=== PATIENT | male | born 1945 | race Caucasian/White ===

== ENCOUNTER 2022-04-22 16:00 | Inpatient (IN) | payer MEDICARE, BC ==
[~2022-04-22] VITALS: Ht 180.3 cm; Wt 92.5 kg
[~2022-04-22 16:00] MED LIST: LISI10TA29 PO
[2022-04-22] MEDS ORDERED: methylPREDNISolone SOD SUCC 125 MG/2 ML VIAL IV ONE (16:15)
[2022-04-22] MEDS ORDERED: ALBUTEROL SULFATE 2.5 MG/3 ML NEBU NEB ONE (16:15)
[2022-04-22] MEDS ORDERED: IPRATROPIUM BROMIDE 0.5 MG/2.5 ML NEBU NEB ONE (16:15)
[2022-04-22 16:24] LABS: HEMATOCRIT 25.8 % (36.7-47.1); MEAN CORPUSCULAR HEMOGLOBIN 32.5 uug (23.8-33.4); MEAN CORPUSCULAR VOLUME 92.2 fL (73.0-96.2); PLATELET COUNT (AUTO) 308 K/uL (152-348)
[2022-04-22 16:35] LABS: CARBON DIOXIDE 26 mmol/L (21-32); CHLORIDE 85 mmol/L (98-107); CREATININE 0.9 mg/dL (0.6-1.3); GLUCOSE 130 mg/dL (74-106); POTASSIUM 4.5 mmol/L (3.5-5.1); UREA NITROGEN, BLOOD 21 mg/dL (7-18)
[2022-04-22] MEDS ORDERED: FUROSEMIDE 40 MG/4 ML VIAL IV ONE (17:00)
[2022-04-22 17:03] LABS: *BILIRUBIN,URIN NEGATIVE (NEGATIVE); *CLARITY,URINE SLIGHTLY CLOUDY (CLEAR); *COLOR,URINE YELLOW (YELLOW); *KETONES,URINE NEGATIVE (NEGATIVE); LEUKOCYTE ESTERASE ,URINE NEGATIVE (NEGATIVE); NITRITE, URINE NEGATIVE (NEGATIVE); PH,URINE 5.5 (5.0-8.0); UGLUCOSE NEGATIVE (NEGATIVE)
[2022-04-22 17:06] LABS: *BLOOD, URINE TRACE (NEGATIVE)
--- NOTE | 2022-04-22 17:17 | NUR ---
Radiologic Technologist assumes care: nursing SBAR received from RN GEOFF Sanders, patient is AOx4, on BIPAP with parameters@15/5, rate=20/min, FiO2=40%, patientis tolerating the BIPAP well, CCU/ICU admission per Dr Modi, patient's [email or web address].
[2022-04-22 17:19] LABS: *CHLORIDE RNDM,URINE 12 mmol/L (100-250); *POTASSIUM RNDM,URINE 30 mmol/L (25-125)
[2022-04-22 17:24] LABS: ABG BASE EXCESS -2.6 mmol/L; ABG HCO3 21.7 mmol/L; ABG PCO2 35.3 mmHg (35.0-45.0); ABG PH 7.406 (7.350-7.450); ABG PO2 78.9 mmHg (75.0-100.0); ABG SITE LEFT BRACHIAL; ABG TOTAL HEMOGLOBIN 9.4 G/dL (13.5-18.0); COHb 0.3 % (0.5-1.5); MetHb 0.3 % (0.0-1.5); O2Hb 94.5 % (94.0-97.0); VENT MODE BIPAP
--- NOTE | 2022-04-22 17:34 | NUR ---
Patient wants something for pain, MD notified, pending orders.
--- NOTE | 2022-04-22 17:42 | NUR ---
Nursing animal caretaker supervisor Narcisa, ER registration staff Kassandra and CCU nurse Alanis were notified re: plan to admit to CCU/ICU".
[2022-04-22] MEDS ORDERED: MORPHINE SULFATE 10 MG/1 ML DISP.SYRIN IV ONE (18:30)
[2022-04-22] MEDS ORDERED: MORPHINE SULFATE 4 MG/1 ML DISP.SYRIN ONE (18:38)
--- NOTE | 2022-04-22 19:05 | NUR ---
Patient is resting comfortably on gurney with eyes closed, BIPAP on, pending bread dumper's callback, Nursing SBAR given to FATEMEH Amado.
--- NOTE | 2022-04-22 19:34 | NUR ---
Patient will be admited to CCU under Dr Alli Terrazas
[2022-04-22 20:22] LABS: BACTERIA,URINE NONE SEEN /HPF (NONE SEEN); SQUAMOUS EPITHELIAL CELL,UR FEW /HPF (NONE SEEN); WBC,URINE 0-3 /HPF (0-3)
[2022-04-22 20:23] LABS: URINE AMORPHOUS URATE MODERATE /HPF
[2022-04-22 22:00] VITALS: BP 165/77
[2022-04-22] MEDS ORDERED: REMEDY ESSENTIAL ZINC PASTE 113 GM TP PRN (22:15)
[2022-04-22] MEDS ORDERED: BUMETANIDE INJ 4 MG in IV DEXTROSE 5% 24 ML IV ONE (22:15)
[2022-04-22] MEDS ORDERED: ONDANSETRON 4 MG/2 ML VIAL IV PRN (22:15)
[2022-04-22 22:33] LABS: CREATININE 1.2 mg/dL (0.6-1.3); POTASSIUM 4.5 mmol/L (3.5-5.1)
[2022-04-22] MEDS ORDERED: methylPREDNISolone SOD SUCC 40 MG/ML VIAL ONE (22:35)
[2022-04-22] MEDS ORDERED: BUMETANIDE 1 MG/4 ML VIAL ONE (22:35)
[2022-04-22 22:48] LABS: THYROID STIMULATING HORMONE 1.287 mIU/mL (0.358-3.740)
[2022-04-22] MEDS: methylPREDNISolone SOD SUCC 40 MG/ML VIAL IV SCH (22:55)
[2022-04-22] MEDS ORDERED: APIXABAN 5 MG TABLET ONE (22:59)
[2022-04-22 23:00] VITALS: BP 156/56
[2022-04-22] MEDS: APIXABAN 5 MG TABLET PO SCH (23:01)
[2022-04-22] MEDS ORDERED: IPRATROPIUM BROMIDE 0.5 MG/2.5 ML NEBU ONE (23:19)
[2022-04-22] MEDS ORDERED: ALBUTEROL SULFATE 2.5 MG/3 ML NEBU ONE (23:19)
[2022-04-22] MEDS: ALBUTEROL SULFATE 2.5 MG/3 ML NEBU NEB SCH (23:21)
[2022-04-22] MEDS: IPRATROPIUM BROMIDE 0.5 MG/2.5 ML NEBU NEB SCH (23:21)
[2022-04-23] VITALS: BP 156/65
--- NOTE | 2022-04-23 00:30 | NUR ---
patient has episodes of respiratory distress with repositioning.
[2022-04-23] MEDS ORDERED: HYDROCODONE/APAP 10-325 MG TABLET ONE (01:35)
[2022-04-23] MEDS ORDERED: HYDROCODONE/APAP 10-325 MG TABLET PO PRN (01:45)
[2022-04-23 01:52] LABS: CREATININE 1.1 mg/dL (0.6-1.3); POTASSIUM 4.3 mmol/L (3.5-5.1)
[2022-04-23] MEDS ORDERED: ALBUTEROL SULFATE 2.5 MG/3 ML NEBU ONE (03:01)
[2022-04-23] MEDS ORDERED: IPRATROPIUM BROMIDE 0.5 MG/2.5 ML NEBU ONE (03:02)
[2022-04-23] MEDS: IPRATROPIUM BROMIDE 0.5 MG/2.5 ML NEBU NEB SCH ×6 (03:03→23:34)
[2022-04-23] MEDS: ALBUTEROL SULFATE 2.5 MG/3 ML NEBU NEB SCH ×5 (03:03→20:49)
[2022-04-23 04:26] VITALS: BP 123/65
--- NOTE | 2022-04-23 04:41 | NUR ---
patient has SHAN[facility] bed available on 3rd floor room 318.
[2022-04-23] MEDS ORDERED: methylPREDNISolone SOD SUCC 40 MG/ML VIAL ONE (05:13)
[2022-04-23] MEDS: methylPREDNISolone SOD SUCC 40 MG/ML VIAL IV SCH ×3 (05:14→21:36)
[2022-04-23 05:53] LABS: CREATININE 1.1 mg/dL (0.6-1.3); MAGNESIUM 1.6 mg/dL (1.8-2.4); PHOSPHOROUS 4.1 mg/dL (2.5-4.9)
[2022-04-23 06:09] LABS: HEMATOCRIT 24.1 % (36.7-47.1); MEAN CORPUSCULAR HEMOGLOBIN 32.6 uug (23.8-33.4); MEAN CORPUSCULAR VOLUME 91.6 fL (73.0-96.2); PLATELET COUNT (AUTO) 275 K/uL (152-348)
--- NOTE | 2022-04-23 06:50 | NUR ---
report given to Carolyn WELDON.
--- NOTE | 2022-04-23 08:00 | NUR ---
AWAKE ALERT AND ORIENTED X3, RESTING WITH 3L O2 NC SATURATING 93%, DENIES CHEST PAIN BUT SLIGHT SOB ON EXERTION SR ON MONITOR
[2022-04-23] MEDS: FUROSEMIDE 40 MG/4 ML VIAL IV SCH ×2 (08:47→21:28)
[2022-04-23] MEDS: ASPIRIN EC 81 MG TABLET.DR PO SCH (08:47)
[2022-04-23] MEDS: PANTOPRAZOLE SODIUM 40 MG VIAL IV SCH (08:47)
[2022-04-23] MEDS: APIXABAN 5 MG TABLET PO SCH ×2 (08:48→21:32)
[2022-04-23 09:41] LABS: CREATININE 1.1 mg/dL (0.6-1.3); POTASSIUM 4.4 mmol/L (3.5-5.1)
[2022-04-23] MEDS: MAGNESIUM SULFATE/D5W 100 ML IV SCH ×2 (09:57→10:39)
[2022-04-23] MEDS: ACETAMINOPHEN 325 MG TABLET PO PRN ×2 (10:12→23:32)
--- NOTE | 2022-04-23 10:30 | NUR ---
PATIENT BECAME VERY SOB, ANXIOUS, WARM AND DRY SKIN. O2 AT 2L SATURATING 94% B-PAP OFFERED BY RT BUT REFUSED. ROUTINE BREATHING TX GIVEN AND OBSERVED
--- NOTE | 2022-04-23 11:30 | NUR ---
PATIENT CALMED DOWN RESTING COMFORTABLY SITTING AT THE SIDE OF THE BED
[2022-04-23 11:54] VITALS: BP 110/45
--- NOTE | 2022-04-23 12:52 | NUR ---
C/O LEFT LEG PAIN 6/10 NOT RELIEVED WITH TYLENOL. HOSPITALIST NOTIFIED AWAITING CALL BACK. AWAITING ULTRA SOUND RESULTS
--- NOTE | 2022-04-23 13:01 | NUR ---
DR DAVILA CALLED BACK WITH ORDER TO START ON NORCO
[2022-04-23] MEDS: HYDROCODONE/APAP 10-325 MG TABLET PO PRN ×2 (13:11→19:43)
[2022-04-23 13:39] LABS: CREATININE 1.2 mg/dL (0.6-1.3); POTASSIUM 4.1 mmol/L (3.5-5.1)
[2022-04-23] MEDS ORDERED: BUDE10.2 IH (15:18)
[2022-04-23] MEDS ORDERED: FURO20TA4 PO (15:18)
[2022-04-23] MEDS ORDERED: LOSA50TA39 PO (15:18)
[2022-04-23] MEDS ORDERED: METO-357 PO (15:18)
[2022-04-23] MEDS ORDERED: DIGO125T PO (15:18)
[2022-04-23] MEDS ORDERED: APIX5TAB PO (15:18)
[2022-04-23 16:15] VITALS: BP 154/56
[2022-04-23 18:08] LABS: CREATININE 1.1 mg/dL (0.6-1.3)
--- NOTE | 2022-04-23 18:57 | NUR ---
RESTING COMFORTABLY IN BED CLOSELY MONITORED FOR SOB. CONTINUE WITH O2 AT 3L NC, HHN BY RT ORDERED. SR ON MONITOR
[2022-04-23 19:54] VITALS: BP 162/55
[2022-04-23] MEDS: ATORVASTATIN 40 MG TABLET PO SCH (21:29)
[2022-04-23] MEDS ORDERED: TRAZ-257 PO (21:38)
[2022-04-23] MEDS: TRAZODONE 100 MG TABLET PO PRN (22:24)
[2022-04-24] MEDS: ALBUTEROL SULFATE 2.5 MG/3 ML NEBU NEB SCH ×6 (00:08→21:20)
[2022-04-24] MEDS: HYDROCODONE/APAP 10-325 MG TABLET PO PRN ×4 (00:55→18:49)
[2022-04-24 03:58] VITALS: BP 132/50
[2022-04-24] MEDS: IPRATROPIUM BROMIDE 0.5 MG/2.5 ML NEBU NEB SCH ×5 (04:15→21:19)
[2022-04-24] MEDS: methylPREDNISolone SOD SUCC 40 MG/ML VIAL IV SCH ×3 (05:38→21:06)
[2022-04-24 06:15] LABS: HEMATOCRIT 21.9 % (36.7-47.1); MEAN CORPUSCULAR HEMOGLOBIN 32.2 uug (23.8-33.4); MEAN CORPUSCULAR VOLUME 91.3 fL (73.0-96.2); PLATELET COUNT (AUTO) 318 K/uL (152-348)
[2022-04-24 06:23] LABS: MAGNESIUM 2.1 mg/dL (1.8-2.4); PHOSPHOROUS 3.1 mg/dL (2.5-4.9); POTASSIUM 3.8 mmol/L (3.5-5.1)
[2022-04-24 07:54] LABS: MAGNESIUM 1.9 mg/dL (1.8-2.4); PHOSPHOROUS 3.1 mg/dL (2.5-4.9)
--- NOTE | 2022-04-24 08:00 | NUR ---
RESTING COMFORTABLY IN BED WITH EYES CLOSED NO SS OF PAIN OR DISTRESS. ON 3L NC SATURATING 93%. SR ON MONITOR
[2022-04-24 08:16] LABS: THYROID STIMULATING HORMONE 0.868 mIU/mL (0.358-3.740)
[2022-04-24] MEDS: FUROSEMIDE 40 MG/4 ML VIAL IV SCH ×2 (08:52→20:58)
[2022-04-24] MEDS: PANTOPRAZOLE SODIUM 40 MG VIAL IV SCH (08:53)
[2022-04-24] MEDS: ASPIRIN EC 81 MG TABLET.DR PO SCH (08:53)
[2022-04-24] MEDS: APIXABAN 5 MG TABLET PO SCH ×2 (08:54→20:52)
--- NOTE | 2022-04-24 12:30 | NUR ---
AMBULATED BY THE HALLWAY WITH FWW PATIENT ABLE TO AMBULATE WELL WITH O2 AT 3L NC
--- NOTE | 2022-04-24 13:00 | NUR ---
ROUTINE BREATHING TX DONE FOR SOB WITH GOOD RELIEF AFTER
[2022-04-24] MEDS: LIDOCAINE 5% PATCH TD SCH (14:55)
[2022-04-24] MEDS: PREGABALIN 100 MG CAPSULE PO SCH (14:55)
--- NOTE | 2022-04-24 15:02 | NUR ---
SEEN BY DR DAVILA AND DR CLEMENTE SEE ORDERS AND NOTES
[2022-04-24 15:37] VITALS: BP 153/51
[2022-04-24 15:41] VITALS: BP 153/51
[2022-04-24] MEDS ORDERED: MORPHINE SULFATE 4 MG/1 ML DISP.SYRIN IV ONE (20:15)
[2022-04-24 20:34] VITALS: BP 134/47
[2022-04-24] MEDS: ATORVASTATIN 40 MG TABLET PO SCH (20:52)
[2022-04-25] VITALS (9 sets, daily range): BP systolic 117–160; BP diastolic 44–68
[2022-04-25] MEDS: IPRATROPIUM BROMIDE 0.5 MG/2.5 ML NEBU NEB SCH ×8 (00:30→23:57)
[2022-04-25] MEDS: ALBUTEROL SULFATE 2.5 MG/3 ML NEBU NEB SCH ×8 (00:31→23:57)
[2022-04-25] MEDS: TRAZODONE 100 MG TABLET PO PRN ×2 (00:35→20:49)
[2022-04-25] MEDS: HYDROCODONE/APAP 10-325 MG TABLET PO PRN ×3 (00:36→22:06)
[2022-04-25] MEDS ORDERED: QUETIAPINE FUMARATE 25 MG TABLET PO ONE (03:00)
[2022-04-25] MEDS: methylPREDNISolone SOD SUCC 40 MG/ML VIAL IV SCH ×3 (05:23→22:06)
[2022-04-25] MEDS: PANTOPRAZOLE SODIUM 40 MG TABLET.DR PO SCH (06:18)
[2022-04-25] MEDS: PREGABALIN 100 MG CAPSULE PO SCH (08:38)
[2022-04-25] MEDS: ASPIRIN EC 81 MG TABLET.DR PO SCH (08:39)
[2022-04-25] MEDS: FUROSEMIDE 40 MG/4 ML VIAL IV SCH ×2 (08:39→20:49)
[2022-04-25] MEDS: LIDOCAINE 5% PATCH TD SCH (08:39)
[2022-04-25] MEDS: APIXABAN 5 MG TABLET PO SCH ×2 (08:39→20:46)
[2022-04-25 11:14] LABS: MEAN CORPUSCULAR HEMOGLOBIN 31.9 uug (23.8-33.4); MEAN CORPUSCULAR VOLUME 92.5 fL (73.0-96.2); PLATELET COUNT (AUTO) 279 K/uL (152-348)
[2022-04-25 11:16] LABS: BILIRUBIN,TOTAL 0.4 mg/dL (0.2-1.0); CREATININE 1.3 mg/dL (0.6-1.3); PHOSPHOROUS 3.2 mg/dL (2.5-4.9); POTASSIUM 4.3 mmol/L (3.5-5.1); TOTAL PROTEIN, SERUM 5.8 g/dL (6.4-8.2)
[2022-04-25 11:18] LABS: HEMATOCRIT 19.9 % (36.7-47.1)
[2022-04-25] MEDS ORDERED: MAGNESIUM CITRATE 296 ML BOTTLE PO ONE (13:30)
[2022-04-25] MEDS ORDERED: BISACODYL 10 MG SUPP.RECT RC PRN (13:30)
[2022-04-25] MEDS: DOCUSATE SODIUM 100 MG CAPSULE PO SCH ×2 (13:44→20:46)
[2022-04-25] MEDS ORDERED: DEXTROSE 50% 50 ML DISP.SYRIN IV PRN (13:45)
[2022-04-25] MEDS: BLOOD SUGAR DIAGNOSTIC 1 EACH STRIP VI SCH ×3 (13:45→20:51)
[2022-04-25 14:10] LABS: LYMPHOCYTES % (MANUAL) 4 % (20-40); MONOCYTES % (MANUAL) 3 % (2-10); NEUTROPHILS % (MANUAL) 93 % (42-75)
--- NOTE | 2022-04-25 15:26 | NUR ---
BLOOD TRANSFUSION STARTED AT BEDSIDE. CLOSELY MONITORED
--- NOTE | 2022-04-25 16:09 | NUR ---
NO REACTION FROM BLOOD TRANSFUSION NOTED. CONTINUE WITH TX
[2022-04-25] MEDS: INSULIN REGULAR, HUMAN 300 UNIT/3 ML VIAL SQ PRN (16:27)
--- NOTE | 2022-04-25 16:55 | NUR ---
BS BY FINGER STICK 405. DR EAGLE DAVILA NOTIFIED PER PROTOCOL WITH ORDER TO GIVE ADDITIONAL 16 UNITS
[2022-04-25] MEDS ORDERED: INSULIN REGULAR, HUMAN 300 UNIT/3 ML VIAL SQ ONE (17:00)
--- NOTE | 2022-04-25 18:37 | NUR ---
BLOOD TRANSFUSION COMPLETED WITHOUT ANY REACTION.
--- NOTE | 2022-04-25 19:30 | NUR ---
Received patient sitting at the side of the bed. at bedside. AAOx4. In no apparent distress. Denies any pain or SOB at this time. NSR on tele with HR of 91/min. IV site on right hand intact and patent. O2 at 3LPM via NC in place. O2 sat at 97%. Needs assessed and attended to. Safety measure initiated and call light within reached.
[2022-04-25] MEDS: ATORVASTATIN 40 MG TABLET PO SCH (20:46)
[2022-04-25] MEDS: INSULIN REGULAR, HUMAN 300 UNITS/3 ML VIAL SQ PRN (20:52)
[2022-04-26 00:31] VITALS: BP 151/57
--- NOTE | 2022-04-26 02:21 | NUR ---
Patent complaining of insomnia at this time, although he was given Trazodone 10mg at 2200. Informed FRAME HAND Mame and ordered Seroquel 25mg PO x1 dose. Order noted and will carry out.
[2022-04-26] MEDS ORDERED: QUETIAPINE FUMARATE 25 MG TABLET PO ONE (02:30)
[2022-04-26] MEDS: IPRATROPIUM BROMIDE 0.5 MG/2.5 ML NEBU NEB SCH ×6 (03:30→23:06)
[2022-04-26] MEDS: ALBUTEROL SULFATE 2.5 MG/3 ML NEBU NEB SCH ×6 (03:30→23:06)
[2022-04-26 04:51] VITALS: BP 144/68
--- NOTE | 2022-04-26 05:49 | NUR ---
NSR on tele with BBB, HR of 67/min. Remains on O2 at 3LPM via NC. Denies any SOB. Needs attended to and met. Safety measure maintained and call light within reached.
[2022-04-26] MEDS: methylPREDNISolone SOD SUCC 40 MG/ML VIAL IV SCH (06:00)
--- NOTE | 2022-04-26 06:00 | NUR ---
Patient refused blood draw per asset protection manager.
[2022-04-26] MEDS: PANTOPRAZOLE SODIUM 40 MG TABLET.DR PO SCH (06:09)
--- NOTE | 2022-04-26 06:36 | NUR ---
Patient refused due meds in AM as well as blood sugar testing. Will inform day shift RN to try to check FSBS before breakfast.
[2022-04-26] MEDS: BLOOD SUGAR DIAGNOSTIC 1 EACH STRIP VI SCH ×4 (07:30→20:24)
--- NOTE | 2022-04-26 08:24 | NUR ---
patient refused the blood sugar check and his breathing tx, risks and benefits explained, patient verbalized understanding of it, patient stated "he does not want anything to be done? patient right to refused respected, however will offer again at different time or when family is available.
[2022-04-26] MEDS: INSULIN REGULAR, HUMAN 300 UNIT/3 ML VIAL SQ PRN ×3 (08:50→16:29)
[2022-04-26] MEDS: PREGABALIN 100 MG CAPSULE PO SCH (09:28)
[2022-04-26] MEDS: ASPIRIN EC 81 MG TABLET.DR PO SCH (09:28)
[2022-04-26] MEDS: DOCUSATE SODIUM 100 MG CAPSULE PO SCH ×2 (09:29→21:22)
[2022-04-26] MEDS: FUROSEMIDE 40 MG/4 ML VIAL IV SCH (09:29)
[2022-04-26] MEDS: APIXABAN 5 MG TABLET PO SCH ×2 (09:29→21:23)
[2022-04-26] MEDS: LIDOCAINE 5% PATCH TD SCH (09:30)
[2022-04-26 09:51] LABS: HEMATOCRIT 23.5 % (36.7-47.1); MEAN CORPUSCULAR HEMOGLOBIN 30.7 uug (23.8-33.4); MEAN CORPUSCULAR VOLUME 89.7 fL (73.0-96.2); PLATELET COUNT (AUTO) 325 K/uL (152-348)
[2022-04-26 10:08] LABS: CREATININE 1.2 mg/dL (0.6-1.3); MAGNESIUM 2.9 mg/dL (1.8-2.4); PHOSPHOROUS 2.7 mg/dL (2.5-4.9); POTASSIUM 4.6 mmol/L (3.5-5.1)
[2022-04-26 10:09] LABS: IRON, SERUM 54 ug/dL (50-175)
[2022-04-26 10:35] LABS: FERRITIN 187 ng/mL (26-388)
[2022-04-26 12:29] VITALS: BP 111/40
[2022-04-26] MEDS: HYDROCODONE/APAP 10-325 MG TABLET PO PRN (14:28)
[2022-04-26] MEDS ORDERED: MORPHINE SULFATE 2 MG/1 ML DISP.SYRIN IV ONE (16:15)
[2022-04-26 16:32] VITALS: BP 131/41
--- NOTE | 2022-04-26 17:17 | NUR ---
report given to Angelica bullard Addendum: 04/26/22 at 1901 by LOTTIE BALL RN, RN disregard above documentatio, wrong charting
--- NOTE | 2022-04-26 19:01 | NUR ---
patient was compliant with meds and care. alert, oriented x4, managing CHF, on diuretics and lasix as ordered.
--- NOTE | 2022-04-26 19:11 | NUR ---
no acute distress noted during day, patient fairly tolerated daily acitivities, get sob upon exertion, teaching provided to eat his meals or other activities slowly. patient verbalized understanding of it, noted with pitting edema to both lower extremities.
[2022-04-26 20:15] VITALS: BP 155/50
[2022-04-26] MEDS: INSULIN REGULAR, HUMAN 300 UNITS/3 ML VIAL SQ PRN (20:23)
[2022-04-26] MEDS: ATORVASTATIN 40 MG TABLET PO SCH (20:24)
[2022-04-26] MEDS: TRAZODONE 100 MG TABLET PO PRN (22:20)
[2022-04-27] MEDS ORDERED: QUETIAPINE FUMARATE 25 MG TABLET PO ONE (02:30)
[2022-04-27] MEDS: IPRATROPIUM BROMIDE 0.5 MG/2.5 ML NEBU NEB SCH ×7 (02:31→23:18)
[2022-04-27] MEDS: ALBUTEROL SULFATE 2.5 MG/3 ML NEBU NEB SCH ×7 (02:31→23:18)
[2022-04-27] MEDS: HYDROCODONE/APAP 10-325 MG TABLET PO PRN ×2 (02:42→16:18)
[2022-04-27 04:18] VITALS: BP 145/50
[2022-04-27] MEDS: PANTOPRAZOLE SODIUM 40 MG TABLET.DR PO SCH (06:24)
[2022-04-27] MEDS: BLOOD SUGAR DIAGNOSTIC 1 EACH STRIP VI SCH ×4 (06:47→21:17)
[2022-04-27] MEDS: predniSONE 20 MG TABLET PO SCH (09:14)
[2022-04-27] MEDS: ASPIRIN EC 81 MG TABLET.DR PO SCH (09:14)
[2022-04-27] MEDS: FUROSEMIDE 40 MG TABLET PO SCH (09:14)
[2022-04-27] MEDS: PREGABALIN 100 MG CAPSULE PO SCH (09:14)
[2022-04-27] MEDS: DOCUSATE SODIUM 100 MG CAPSULE PO SCH ×2 (09:14→21:17)
[2022-04-27] MEDS: LIDOCAINE 5% PATCH TD SCH ×2 (09:16→16:18)
[2022-04-27] MEDS: APIXABAN 5 MG TABLET PO SCH (09:18)
[2022-04-27] MEDS ORDERED: BISACODYL 10 MG SUPP.RECT RC ONE (10:15)
[2022-04-27] MEDS ORDERED: CLOPIDOGREL 75 MG TABLET PO SCH (11:00)
[2022-04-27 11:34] VITALS: BP 127/52
[2022-04-27] MEDS: INSULIN REGULAR, HUMAN 300 UNIT/3 ML VIAL SQ PRN ×2 (11:59→17:35)
[2022-04-27 16:00] VITALS: BP 127/69
[2022-04-27] MEDS ORDERED: FENTANYL CITRATE 100 MCG/2 ML AMPUL ONE (19:29)
--- NOTE | 2022-04-27 19:30 | NUR ---
RECEIVED REPORT FROM RN. PATIENT IS DOWN IN SURGERY FOR EGD PROCEDURE.
[2022-04-27 19:54] VITALS: BP 149/57
[2022-04-27 20:00] LABS: *OCCULT BLOOD STOOL POSITIVE (NEGATIVE)
--- NOTE | 2022-04-27 20:30 | NUR ---
HOLD PLAVIX PER DR. PRIETO. PATIENT IS TO HAVE CLEAR LIQUIDS TONIGHT ONLY. ALL NEEDS ATTENDED.
[2022-04-27] MEDS: PANTOPRAZOLE SODIUM 40 MG VIAL IV SCH (21:13)
[2022-04-27] MEDS: ATORVASTATIN 40 MG TABLET PO SCH (21:15)
[2022-04-27] MEDS: TRAZODONE 100 MG TABLET PO PRN (23:26)
[2022-04-28] MEDS: IPRATROPIUM BROMIDE 0.5 MG/2.5 ML NEBU NEB SCH ×7 (03:17→19:16)
[2022-04-28] MEDS: ALBUTEROL SULFATE 2.5 MG/3 ML NEBU NEB SCH ×7 (03:17→19:16)
[2022-04-28] MEDS: HYDROCODONE/APAP 10-325 MG TABLET PO PRN ×3 (04:03→20:19)
[2022-04-28 04:58] VITALS: BP 146/50
--- NOTE | 2022-04-28 06:25 | NUR ---
PATIENT AWAKE IN BED. DENIES PAIN. SLEPT AT INTERVALS. VS WNL. CALL LIGHT IN REACH. ALL NEEDS ATTENDED.
[2022-04-28] MEDS: BLOOD SUGAR DIAGNOSTIC 1 EACH STRIP VI SCH ×4 (06:35→20:20)
[2022-04-28 06:53] LABS: HEMATOCRIT 22.9 % (36.7-47.1); MEAN CORPUSCULAR VOLUME 90.9 fL (73.0-96.2); PLATELET COUNT (AUTO) 301 K/uL (152-348)
[2022-04-28 07:26] LABS: CARBON DIOXIDE 36 mmol/L (21-32); CHLORIDE 96 mmol/L (98-107); GLUCOSE 106 mg/dL (74-106); POTASSIUM 4.8 mmol/L (3.5-5.1); UREA NITROGEN, BLOOD 24 mg/dL (7-18)
[2022-04-28 07:43] LABS: ABG BASE EXCESS 10.3 mmol/L; ABG HCO3 35.8 mmol/L; ABG PCO2 54.6 mmHg (35.0-45.0); ABG PH 7.435 (7.350-7.450); ABG PO2 94.3 mmHg (75.0-100.0); ABG SITE RIGHT RADIAL; ABG TOTAL HEMOGLOBIN 8.7 G/dL (13.5-18.0); COHb 0.4 % (0.5-1.5); MetHb 0.4 % (0.0-1.5); O2Hb 96.1 % (94.0-97.0); VENT MODE Nasal Cannula
[2022-04-28] MEDS: SUCRALFATE 1 G TABLET PO SCH ×4 (08:52→20:19)
[2022-04-28] MEDS: PREGABALIN 100 MG CAPSULE PO SCH (08:52)
[2022-04-28] MEDS: FUROSEMIDE 40 MG TABLET PO SCH (08:53)
[2022-04-28] MEDS: predniSONE 20 MG TABLET PO SCH (08:53)
[2022-04-28] MEDS: ASPIRIN EC 81 MG TABLET.DR PO SCH (08:53)
[2022-04-28] MEDS: GLUCERNA SHAKE 237 ML CAN PO SCH (08:53)
[2022-04-28] MEDS: DOCUSATE SODIUM 100 MG CAPSULE PO SCH ×2 (08:53→20:19)
[2022-04-28] MEDS: PANTOPRAZOLE SODIUM 40 MG VIAL IV SCH ×2 (08:53→20:19)
--- NOTE | 2022-04-28 11:00 | NUR ---
Confirmed with Dr. Rider if patient should be on Plavix PO since magazine writer, Vish Hoff ordered to hold plavix. Per Dr. Rider, patient needs to to be on Plavix due to recent stent placement. Patient aware.
[2022-04-28 11:50] VITALS: BP 147/56
[2022-04-28] MEDS: CLOPIDOGREL 75 MG TABLET PO SCH (12:28)
[2022-04-28] MEDS: INSULIN REGULAR, HUMAN 300 UNIT/3 ML VIAL SQ PRN (12:32)
--- NOTE | 2022-04-28 15:59 | NUR ---
Patient noted with one episode of SOB and anxiousness. [place] provided and effective. Seen by Dr. Delgadillo, no new orders, patient bale to tolerate 3L/min via NC at this time with 02 sats at 94%. Denies any chest pain. Able to ambulate to to bathroom with SBA, safety precautions continued. All needs attended, call light within reach.
[2022-04-28] MEDS: LIDOCAINE 5% PATCH TD SCH (18:26)
[2022-04-28 20:08] VITALS: BP 166/56
[2022-04-28] MEDS: ATORVASTATIN 40 MG TABLET PO SCH (20:20)
[2022-04-28] MEDS: INSULIN REGULAR, HUMAN 300 UNITS/3 ML VIAL SQ PRN (20:24)
--- NOTE | 2022-04-28 20:30 | NUR ---
RECEIVED PATIENT IN HIS ROOM SITING IN HIS BED. HE IS NOTED A/O X 3 HIS IS AT HIS BED SIDE. PATIENT IS IN NO DISTRESS. HIS V/S ARE STABLE. IV LOCKED IN RIGHT HAND PATENT AND INTACT. HE CONTINUE ON O2 THERAPY AT 3L VIA NC. O2SAT IS 99%. HE DENIED PAIN AT THIS TIME. WILL CONTINUE TO MONITOR.
--- NOTE | 2022-04-28 21:00 | NUR ---
meds given; hands off report given to FATEMEH Harris;
[2022-04-29] MEDS: ALBUTEROL SULFATE 2.5 MG/3 ML NEBU NEB SCH ×4 (00:30→11:30)
[2022-04-29] MEDS: IPRATROPIUM BROMIDE 0.5 MG/2.5 ML NEBU NEB SCH ×4 (00:30→11:30)
[2022-04-29 04:11] VITALS: BP 158/55
[2022-04-29] MEDS: SUCRALFATE 1 G TABLET PO SCH ×2 (06:35→11:38)
[2022-04-29] MEDS: BLOOD SUGAR DIAGNOSTIC 1 EACH STRIP VI SCH ×2 (06:38→12:23)
[2022-04-29] MEDS: HYDROCODONE/APAP 10-325 MG TABLET PO PRN (06:55)
[2022-04-29 07:08] LABS: HEMATOCRIT 21.5 % (36.7-47.1); MEAN CORPUSCULAR HEMOGLOBIN 31.6 uug (23.8-33.4); MEAN CORPUSCULAR VOLUME 90.1 fL (73.0-96.2); PLATELET COUNT (AUTO) 261 K/uL (152-348)
[2022-04-29 07:29] LABS: CREATININE 0.8 mg/dL (0.6-1.3); POTASSIUM 4.2 mmol/L (3.5-5.1)
[2022-04-29 08:03] LABS: LYMPHOCYTES % (MANUAL) 17 % (20-40); MONOCYTES % (MANUAL) 7 % (2-10); MYELOCYTES % 1 % (0-0); NEUTROPHILS % (MANUAL) 75 % (42-75)
[2022-04-29] MEDS: PREGABALIN 100 MG CAPSULE PO SCH (08:45)
[2022-04-29] MEDS: FUROSEMIDE 40 MG TABLET PO SCH (08:45)
[2022-04-29] MEDS: CLOPIDOGREL 75 MG TABLET PO SCH (08:45)
[2022-04-29] MEDS: predniSONE 20 MG TABLET PO SCH (08:46)
[2022-04-29] MEDS: ASPIRIN EC 81 MG TABLET.DR PO SCH (08:46)
[2022-04-29] MEDS: DOCUSATE SODIUM 100 MG CAPSULE PO SCH (08:46)
[2022-04-29] MEDS: PANTOPRAZOLE SODIUM 40 MG VIAL IV SCH (08:46)
[2022-04-29] MEDS: GLUCERNA SHAKE 237 ML CAN PO SCH (08:47)
[2022-04-29] MEDS: LIDOCAINE 5% PATCH TD SCH (08:47)
[2022-04-29] MEDS ORDERED: PANT40TA2 PO (10:15)
[2022-04-29] MEDS ORDERED: METH4TAB3 PO (10:15)
[2022-04-29] MEDS ORDERED: PREG100C GT (10:15)
[2022-04-29] MEDS ORDERED: ASPI81TA31 PO (10:15)
[2022-04-29] MEDS ORDERED: SUCR1TAB PO (10:15)
[2022-04-29] MEDS ORDERED: CLOP75TA15 PO (10:15)
[2022-04-29] MEDS ORDERED: TRAZ-257 PO (10:15)
[2022-04-29] MEDS ORDERED: FURO-151 PO (10:15)
[2022-04-29 11:54] VITALS: BP 129/98
[2022-04-29] MEDS: INSULIN REGULAR, HUMAN 300 UNIT/3 ML VIAL SQ PRN (12:27)
--- NOTE | 2022-04-29 13:20 | NUR ---
Pt has been discharged home. Pt at bedside, gave discharge education and materials to both pt and . Medications sent electronically to preferred pharmacy, explained directions and use. All personal belongings at hand. Checked pt's SpO2 on room air per MD order, saturation was as low as 86% on room air. Pt qualifies for home oxygen. Placed pt back on 3L NC. Oxygen set up to have at home per case management specialist. No signs of acute distress noted or reported. IV and ID bands removed. Pt wheeled down to wifes car at entrance.
== END 2022-04-29 13:20 | disposition home or self-care (01) | DRG 280 ==
LOC: ER 16:00 → TRANSITION 21:42 → TELE-TD3 04-23 06:46 → TELE3 04-24 14:46 → MEDSURG3 04-26 10:40
PROVIDERS: ADMIT Nurse Practitioner Acute Care; ATTEND Nurse Practitioner Acute Care
PROC: 5A09357 Assistance with Respiratory Ventilation, Less than 24 Consecutive Hours, Continuous Positive Airway Pressure (ICD-10-PCS; principal; 2022-04-22)
PROC: 30233N1 Transfusion of Nonautologous Red Blood Cells into Peripheral Vein, Percutaneous Approach (ICD-10-PCS; 2022-04-25)
PROC: 0W3P8ZZ Control Bleeding in Gastrointestinal Tract, Via Natural or Artificial Opening Endoscopic (ICD-10-PCS; 2022-04-27)
DX: I13.0 Hypertensive heart and chronic kidney disease with heart failure and stage 1 through stage 4 chronic kidney disease, or unspecified chronic kidney disease (principal); I21.A1 Myocardial infarction type 2; I50.33 Acute on chronic diastolic (congestive) heart failure; J96.21 Acute and chronic respiratory failure with hypoxia; J96.22 Acute and chronic respiratory failure with hypercapnia; N17.0 Acute kidney failure with tubular necrosis; K31.82 Dieulafoy lesion (hemorrhagic) of stomach and duodenum; E87.1 Hypo-osmolality and hyponatremia; D68.9 Coagulation defect, unspecified; D63.8 Anemia in other chronic diseases classified elsewhere; E78.5 Hyperlipidemia, unspecified; I25.10 Atherosclerotic heart disease of native coronary artery without angina pectoris; E11.22 Type 2 diabetes mellitus with diabetic chronic kidney disease; Z79.01 Long term (current) use of anticoagulants; N18.2 Chronic kidney disease, stage 2 (mild); Z95.5 Presence of coronary angioplasty implant and graft; Z99.81 Dependence on supplemental oxygen; E11.65 Type 2 diabetes mellitus with hyperglycemia; Z86.718 Personal history of other venous thrombosis and embolism; Z96.641 Presence of right artificial hip joint; I27.20 Pulmonary hypertension, unspecified; M54.32 Sciatica, left side; K29.70 Gastritis, unspecified, without bleeding; F17.210 Nicotine dependence, cigarettes, uncomplicated; J44.9 Chronic obstructive pulmonary disease, unspecified
CPT/HCPCS: 36415; 36600; 51702; 70030-TC; 71045; 73502; 82533; 83550; 83735; 83930; 83935; 84100; 84133; 84300; 84443; 84484; 84550; 85025; 86140; 86850; 86900; 86901; 86920; 93005; 93307; 94640; 94660; 97161; A4663; C1758; C9113; G0378; J1815; J1940; J2270; J2920; J2930; J3010; J3475; J3490; J3590; J7120; J7512; P9016

== ENCOUNTER 2022-06-25 17:30 | Inpatient (IN) | payer MEDICARE, BC ==
[~2022-06-25] VITALS: Ht 180.3 cm; Wt 84.8 kg
[~2022-06-25 17:30] MED LIST changes: +ASPI81TA31 PO; +BUDE10.2 IH; +CLOP75TA15 PO; +FURO-151 PO; +FURO20TA4 PO; -LISI10TA29 PO; +LOSA50TA39 PO; +METH4TAB3 PO; +METO-357 PO; +PANT40TA2 PO; +PREG100C GT; +SUCR1TAB PO; +TRAZ-257 PO
[2022-06-25] MEDS ORDERED: ALBUTEROL SULFATE 2.5 MG/ 0.5 ML NEBU ONE (17:40)
[2022-06-25] MEDS ORDERED: methylPREDNISolone SOD SUCC 125 MG/2 ML VIAL ONE (17:41)
[2022-06-25] MEDS ORDERED: IPRATROPIUM BROMIDE 0.5 MG/2.5 ML NEBU ONE (17:41)
--- NOTE | 2022-06-25 17:43 | NUR ---
Patient placed on BiPap with settings of 12/5, rate of 18, FiO2 100%
[2022-06-25] MEDS ORDERED: methylPREDNISolone SOD SUCC 125 MG/2 ML VIAL IV ONE (17:45)
[2022-06-25] MEDS ORDERED: IPRATROPIUM BROMIDE 0.5 MG/2.5 ML NEBU NEB ONE (17:45)
[2022-06-25] MEDS ORDERED: ALBUTEROL SULFATE 2.5 MG/3 ML NEBU NEB ONE (17:45)
[2022-06-25] MEDS ORDERED: NITROGLYCERIN 0.4 MG/TAB BOTTLE SL ONE ×2 (17:56→18:00)
[2022-06-25 18:01] LABS: CARBON DIOXIDE 29 mmol/L (21-32); CHLORIDE 88 mmol/L (98-107); CREATININE 0.7 mg/dL (0.6-1.3); GLUCOSE 150 mg/dL (74-106); UREA NITROGEN, BLOOD 7 mg/dL (7-18)
[2022-06-25] MEDS ORDERED: PANT40TA49 PO (18:07)
[2022-06-25] MEDS ORDERED: OXYC5TAB3 PO (18:07)
[2022-06-25] MEDS ORDERED: ISOS30TA86 PO (18:07)
[2022-06-25] MEDS ORDERED: AMLO10TA59 PO (18:07)
[2022-06-25] MEDS ORDERED: CLOP75TA33 PO (18:07)
[2022-06-25] MEDS ORDERED: PREG100C PO (18:07)
[2022-06-25 18:12] LABS: HEMATOCRIT 25.3 % (36.7-47.1); MEAN CORPUSCULAR HEMOGLOBIN 24.9 uug (23.8-33.4); MEAN CORPUSCULAR VOLUME 76.9 fL (73.0-96.2); PLATELET COUNT (AUTO) 262 K/uL (152-348)
[2022-06-25 18:13] LABS: ALANINE AMINOTRANSFERASE 48 U/L (16-63); ALKALINE PHOSPHATASE 108 U/L (50-136); ASPARTATE AMINOTRANSFERASE 21 U/L (15-37); BILIRUBIN,DIRECT 0.1 mg/dL (0.0-0.2); BILIRUBIN,TOTAL 0.4 mg/dL (0.2-1.0); TOTAL PROTEIN, SERUM 6.3 g/dL (6.4-8.2)
[2022-06-25] MEDS ORDERED: FUROSEMIDE 40 MG/4 ML VIAL IV ONE (18:15)
[2022-06-25] MEDS ORDERED: FUROSEMIDE 40 MG/4 ML VIAL ONE (18:15)
[2022-06-25 18:19] LABS: NEUTROPHILS % (MANUAL) 0 % (42-75)
--- NOTE | 2022-06-25 18:23 | NUR ---
Paged [facility] working second hand. Waiting for Dr Davidson to call back.
[2022-06-25] MEDS ORDERED: NITROGLYCERIN OINT 1 GM PACKET TP ONE ×2 (18:30→18:32)
[2022-06-25] MEDS ORDERED: ASPIRIN 81 MG TAB.CHEW PO ONE (18:30)
--- NOTE | 2022-06-25 18:30 | NUR ---
Dr Dominguez spoke to [facility] panel air conditioning coil assembler, Mame who aacept patient to ICU admission.
[2022-06-25] MEDS ORDERED: ASPIRIN 81 MG TAB.CHEW ONE (18:31)
--- NOTE | 2022-06-25 19:26 | NUR ---
CALLED [facility], [facility] WHO HAS NO ALS AVAILABLE TODAY.
--- NOTE | 2022-06-25 19:27 | NUR ---
CALLED [facility] WHO MIGHT HAVE ALS UNIT AVAILABLE AT 2130 TO 2200 TODAY. THEY WILL CALL BACK TO CONFIRM.
--- NOTE | 2022-06-25 19:38 | NUR ---
Called Dr. Hancock for cardiology consult.
--- NOTE | 2022-06-25 20:20 | NUR ---
Called [facility], spoke with Marline, faxed patient clinicals to
--- NOTE | 2022-06-25 20:23 | NUR ---
Called [facility], left message.
[2022-06-25] MEDS ORDERED: ENOXAPARIN SODIUM 100 MG/ML DISP.SYRIN SQ ONE ×2 (20:30→22:57)
--- NOTE | 2022-06-25 20:45 | NUR ---
called respiratory therapist patient dont want the bipap and gets resltess spoked sam respiratory therapist his coming to see patient dr: malaika at b/s examined patient from bipap placed patient on simple face mask @8 liters saturation 100% rr 24.
--- NOTE | 2022-06-25 20:48 | NUR ---
Dr. Turner speaking with Dr. Felipe of [facility].
--- NOTE | 2022-06-25 20:50 | NUR ---
pt refused BIPAP as placed pt on 8LPM simple mask. SpO2 98%. MD and RN aware. will cont to monitor pt.
--- NOTE | 2022-06-25 21:00 | NUR ---
ASHLEY SPOKED WITH PATIENT AND PATIENT AT B/S . DISCUSSED THE PLAN FOR TRANSFER TO [facility] HE GOT A ROOM 508 AND AN ADMITTING MD FREDA .NEED TO ARRANGE FOR AMBULANCE TRANSPORTATION .PATIENT ALSO REQUESTIN GOT FOR SOMETHING TO EAT SO THAT THE CAN BRING FOOD FROM HOME .
--- NOTE | 2022-06-25 22:15 | NUR ---
BROUGHT FOOD FROM HOME PATIENT ABLE TO FEED SELF PATIENT ATE .
--- NOTE | 2022-06-25 22:55 | NUR ---
Received call back from Dana Wells, General Dentist, [facility], Patient accepted by Dr. Felipe, going to [facility], Room 508, Number to report .
--- NOTE | 2022-06-25 23:12 | NUR ---
:MEG AT B/S DISCUSSED THE PLAN OF TREATMENT SPOKED ABOUT HEART ATTACK AND WATER IN THE LUNGS ETC. HE NEEDS A ACCESS CONTROL SPECIALIST TO SEE HIM .THATS WHY HIS MOVING TO [facility] TO SEE AN EXPERT .
[2022-06-25] MEDS ORDERED: TRAZODONE 100 MG TABLET ONE (23:48)
[2022-06-25] MEDS ORDERED: HYDROCODONE/APAP 10-325 MG TABLET ONE (23:49)
--- NOTE | 2022-06-25 23:55 | NUR ---
GIVEN TRAZADONE 200 MG PO TO HELP HIM SLEEP AND NORCO FOR [place] BACK PAIN 05/19.PATIENT TOOK MEDICATION WITH WATER.
[2022-06-26] MEDS ORDERED: HYDROCODONE/APAP 10-325 MG TABLET PO ONE
[2022-06-26] MEDS ORDERED: TRAZODONE 50 MG TABLET PO ONE
--- NOTE | 2022-06-26 01:45 | NUR ---
patient in bed on and off asleep easily arousable . prn uses the urinal to void .
--- NOTE | 2022-06-26 06:46 | NUR ---
Called [facility] . ETA 2-3pm.
[2022-06-26 07:12] LABS: ABG BASE EXCESS 1.8 mmol/L; ABG HCO3 27.9 mmol/L; ABG PCO2 51.5 mmHg (35.0-45.0); ABG PH 7.351 (7.350-7.450); ABG PO2 435.4 mmHg (75.0-100.0); ABG SITE RIGHT BRACHIAL; MetHb 0.6 % (0.0-1.5); O2Hb 99.2 % (94.0-97.0); VENT MODE BIPAP
--- NOTE | 2022-06-26 07:30 | NUR ---
Radiation Protection Engineer assumes care: Patient is AOx4, calm, denies chest pains, skin warm and dry,+nasal cannula@4liters per minute. Patient is for transfer to [facility] room 508, pending accepting [facility] ambulance to take this patient to [facility]. Sinus rhythm on monitor, no ectopy seen.
[2022-06-26 08:58] LABS: HEMATOCRIT 26.9 % (36.7-47.1); MEAN CORPUSCULAR VOLUME 77.3 fL (73.0-96.2); PLATELET COUNT (AUTO) 291 K/uL (152-348)
--- NOTE | 2022-06-26 09:47 | NUR ---
Patient's spouse [email or web address]. Patient is for transfer to [facility] room 508. ACLS ambulance [id number] per [facility] porter sample case Chuck. Patient and family are both aware.
--- NOTE | 2022-06-26 10:11 | NUR ---
Ui Developer Dr Davidson came and said that this patient is stable for admission in our hospital instead of transferring to another hospital. ER Doctor notified. EPIC hospitalist will be notified by the clamp truck driver himself.
[2022-06-26] MEDS ORDERED: PANTOPRAZOLE SODIUM 40 MG TABLET.DR PO SCH (10:15)
[2022-06-26] MEDS ORDERED: PREGABALIN 100 MG CAPSULE PO SCH ×2 (10:15→21:00)
[2022-06-26] MEDS ORDERED: ACETAMINOPHEN 325 MG TABLET PO PRN (10:15)
[2022-06-26] MEDS ORDERED: FLUTICASONE/VILANTEROL 1 EACH BLST.W.DEV INH SCH (10:15)
[2022-06-26] MEDS ORDERED: ONDANSETRON 4 MG/2 ML VIAL IV PRN (10:15)
[2022-06-26] MEDS: ISOSORBIDE MONONITRATE 30 MG TAB.SR.24H PO SCH (10:15)
[2022-06-26] MEDS: LOSARTAN POTASSIUM 50 MG TABLET PO SCH (10:15)
[2022-06-26] MEDS ORDERED: hydrALAZINE HCL 20 MG/1 ML VIAL IV PRN (10:15)
[2022-06-26] MEDS ORDERED: ALBUTEROL SULFATE 8 GM HFA.AER.AD IH PRN (10:15)
[2022-06-26] MEDS ORDERED: CLOPIDOGREL 75 MG TABLET ONE (10:19)
[2022-06-26] MEDS ORDERED: FUROSEMIDE 40 MG/4 ML VIAL ONE (10:20)
[2022-06-26] MEDS ORDERED: PANTOPRAZOLE SODIUM 40 MG TABLET.DR PO ONE (10:20)
[2022-06-26] MEDS ORDERED: METOPROLOL SUCCINATE XL 50 MG TAB.SR.24H PO ONE (10:20)
[2022-06-26] MEDS ORDERED: ENOXAPARIN SODIUM 100 MG/ML DISP.SYRIN SQ ONE (10:21)
[2022-06-26] MEDS: FUROSEMIDE 40 MG/4 ML VIAL IV SCH ×2 (10:26→20:21)
[2022-06-26] MEDS: CLOPIDOGREL 75 MG TABLET PO SCH (10:27)
[2022-06-26] MEDS: METOPROLOL SUCCINATE XL 50 MG TAB.SR.24H PO SCH (10:29)
[2022-06-26] MEDS: ENOXAPARIN SODIUM 100 MG/ML DISP.SYRIN SQ SCH ×2 (10:30→20:22)
--- NOTE | 2022-06-26 11:45 | NUR ---
Patient is resting comfortably in bed with eyes closed, his respiration is easy and nonlabored. PATIENT IS PAIN FREE AT THIS TIME.
[2022-06-26 12:08] LABS: ABG BASE EXCESS 3.2 mmol/L; ABG PCO2 50.9 mmHg (35.0-45.0); ABG PH 7.374 (7.350-7.450); ABG PO2 60.9 mmHg (75.0-100.0); ABG SITE RIGHT RADIAL; ABG TOTAL HEMOGLOBIN 9.4 G/dL (13.5-18.0); COHb 0.5 % (0.5-1.5); MetHb 0.1 % (0.0-1.5); O2Hb 90.1 % (94.0-97.0); VENT MODE Nasal Cannula
[2022-06-26] MEDS ORDERED: ALBUTEROL SULFATE 2.5 MG/3 ML NEBU NEB PRN (12:30)
--- NOTE | 2022-06-26 13:00 | NUR ---
ADMITTED FROM HOME VIA ER A 77 YO MALE C//O SOB, DX NON-STEMI AWAKE ALERT AND ORIENTED X3 ABLE TO PARTICIPATE WITH ADMISSION ASSESSMENT. SHIFT SOB ON EXERTION, PLACE ON 3L NC SATURATING 93% , SR/BBB ON MONITOR. CLOSELY MONITORED
[2022-06-26] MEDS: AMLODIPINE 10 MG TABLET PO SCH (13:33)
[2022-06-26] MEDS: FLUTICASONE/VILANTEROL 1 EACH BLST.W.DEV INH SCH (13:33)
[2022-06-26] MEDS: SUCRALFATE 1 G TABLET PO SCH ×3 (13:33→20:24)
[2022-06-26 13:46] VITALS: BP 142/56
[2022-06-26] MEDS: PANTOPRAZOLE SODIUM 40 MG TABLET.DR PO SCH (16:20)
[2022-06-26 16:33] VITALS: BP 122/52
--- NOTE | 2022-06-26 16:51 | NUR ---
CONTINUE CURRENT TX PLAN TOLERATING 3L NC SATURATING 90-94%. SR/BBB ON MONITOR
[2022-06-26] MEDS: OXYCODONE HCL 5 MG TABLET PO PRN (18:42)
[2022-06-26 20:00] VITALS: BP 149/56
[2022-06-26] MEDS: PREGABALIN 100 MG CAPSULE PO SCH (20:20)
[2022-06-27 00:50] VITALS: BP 151/56
[2022-06-27 04:20] VITALS: BP 177/80
--- NOTE | 2022-06-27 05:34 | NUR ---
Pt slept intermittently. Some SOB noted, better when oxygen is on. Able to ambulate to restroom. IV site intact. Tolerated all medications given. Safety maintained. Will endorse to day shift.
[2022-06-27] MEDS: PANTOPRAZOLE SODIUM 40 MG TABLET.DR PO SCH ×3 (06:01→16:13)
[2022-06-27 07:09] LABS: HEMATOCRIT 28.7 % (36.7-47.1); MEAN CORPUSCULAR HEMOGLOBIN 24.5 uug (23.8-33.4); MEAN CORPUSCULAR VOLUME 77.5 fL (73.0-96.2); PLATELET COUNT (AUTO) 327 K/uL (152-348)
--- NOTE | 2022-06-27 07:30 | NUR ---
RECEIVED ALERT AND ORIENTED X3. LEFT WRIST IV INTACT AND PATENT. ON 3 LPM VIA NC. NO SS OF PAIN OR RESPIRATORY DISTRESS. SITTING AT EDGE OF BED ASSISTED WITH USING THE URINAL. VOIDING YELLOW URINE NO HEMATURIA OR DYSURIA. ASSISTED BACK TO BED. CALL LIGHT IN REACH. CONT TO OBSERVE.
[2022-06-27 07:47] LABS: BILIRUBIN,TOTAL 0.4 mg/dL (0.2-1.0); CREATININE 0.9 mg/dL (0.6-1.3); PHOSPHOROUS 2.5 mg/dL (2.5-4.9); POTASSIUM 3.9 mmol/L (3.5-5.1); TOTAL PROTEIN, SERUM 6.9 g/dL (6.4-8.2)
[2022-06-27] MEDS: SUCRALFATE 1 G TABLET PO SCH ×4 (08:20→20:10)
[2022-06-27] MEDS: FLUTICASONE/VILANTEROL 1 EACH BLST.W.DEV INH SCH (08:20)
[2022-06-27] MEDS: ISOSORBIDE MONONITRATE 30 MG TAB.SR.24H PO SCH (08:20)
[2022-06-27] MEDS: CLOPIDOGREL 75 MG TABLET PO SCH (08:20)
[2022-06-27] MEDS: AMLODIPINE 10 MG TABLET PO SCH (08:20)
[2022-06-27] MEDS: LOSARTAN POTASSIUM 50 MG TABLET PO SCH ×2 (08:21→11:50)
[2022-06-27] MEDS: METOPROLOL SUCCINATE XL 50 MG TAB.SR.24H PO SCH (08:21)
[2022-06-27] MEDS: FUROSEMIDE 40 MG/4 ML VIAL IV SCH ×2 (08:23→20:10)
[2022-06-27] MEDS: ENOXAPARIN SODIUM 100 MG/ML DISP.SYRIN SQ SCH ×2 (08:29→20:11)
[2022-06-27] MEDS: OXYCODONE HCL 5 MG TABLET PO PRN (11:06)
[2022-06-27 11:16] VITALS: BP 122/57
--- NOTE | 2022-06-27 11:58 | NUR ---
Patient removed his telemonitor and refusing to put it back on. R/b explained but adamantly refused. Dr. Linton aware. at bedside aware. SR in the morning. Will cont to encourage.
[2022-06-27 15:37] VITALS: BP 144/50
--- NOTE | 2022-06-27 17:27 | NUR ---
Still refused tele monitor. Remains on 3 lpm No respiratory distress noted.
--- NOTE | 2022-06-27 18:36 | NUR ---
patient has refused tele monitor r/b explained. dr. alex with order to dc telemetry.
[2022-06-27 20:00] VITALS: BP 179/76
[2022-06-27] MEDS: ATORVASTATIN 40 MG TABLET PO SCH (20:10)
[2022-06-27] MEDS: PREGABALIN 100 MG CAPSULE PO SCH (20:10)
[2022-06-27] MEDS: TRAZODONE 100 MG TABLET PO PRN (21:54)
[2022-06-28] MEDS: MORPHINE SULFATE 2 MG/1 ML DISP.SYRIN IV PRN ×2 (00:16→10:05)
[2022-06-28 04:00] VITALS: BP 152/62
--- NOTE | 2022-06-28 05:46 | NUR ---
Pt slightly restless throughout the night. C/o some SOB, given nebulizer treatment, tolerated well. Able to ambulate and make needs known. No distress noted at this time. Will endorse to day shift.
[2022-06-28] MEDS: PANTOPRAZOLE SODIUM 40 MG TABLET.DR PO SCH ×3 (06:13→18:13)
[2022-06-28 06:51] LABS: HEMATOCRIT 27.2 % (36.7-47.1); MEAN CORPUSCULAR HEMOGLOBIN 24.9 uug (23.8-33.4); MEAN CORPUSCULAR VOLUME 76.3 fL (73.0-96.2); PLATELET COUNT (AUTO) 351 K/uL (152-348)
[2022-06-28 07:24] LABS: BILIRUBIN,TOTAL 0.5 mg/dL (0.2-1.0); CREATININE 0.9 mg/dL (0.6-1.3); POTASSIUM 3.3 mmol/L (3.5-5.1); TOTAL PROTEIN, SERUM 6.5 g/dL (6.4-8.2)
--- NOTE | 2022-06-28 08:00 | NUR ---
Awake, alert, oriented x 4, sitting at the edge of the bed. O2 at 3L/NC with O2 sat of 95%. BLE edema
[2022-06-28] MEDS: FLUTICASONE/VILANTEROL 1 EACH BLST.W.DEV INH SCH (09:00)
[2022-06-28] MEDS: FUROSEMIDE 40 MG/4 ML VIAL IV SCH ×2 (09:13→20:13)
[2022-06-28] MEDS: SUCRALFATE 1 G TABLET PO SCH ×5 (09:13→20:12)
[2022-06-28] MEDS: ISOSORBIDE MONONITRATE 30 MG TAB.SR.24H PO SCH (09:14)
[2022-06-28] MEDS: LOSARTAN POTASSIUM 50 MG TABLET PO SCH (09:14)
[2022-06-28] MEDS: POTASSIUM CHLORIDE 20 MEQ TAB.PRT.SR PO SCH (09:15)
[2022-06-28] MEDS: AMLODIPINE 10 MG TABLET PO SCH (09:15)
[2022-06-28] MEDS: CLOPIDOGREL 75 MG TABLET PO SCH (09:15)
[2022-06-28] MEDS: METOPROLOL SUCCINATE XL 50 MG TAB.SR.24H PO SCH (09:16)
--- NOTE | 2022-06-28 10:05 | NUR ---
Report of severe left hip pain, restless. Morphine IV given as ordered with delayed relief
[2022-06-28 12:00] VITALS: BP 123/70
[2022-06-28] MEDS: OXYCODONE HCL 5 MG TABLET PO PRN ×2 (12:35→19:42)
--- NOTE | 2022-06-28 12:35 | NUR ---
Still with right hip pain. Oxy IR given as ordered with relief.
[2022-06-28 16:00] VITALS: BP 145/55
--- NOTE | 2022-06-28 18:30 | NUR ---
Refused to take sucralfate. Caregiver at bedside. Eating fairly.
[2022-06-28 20:00] VITALS: BP 148/62
[2022-06-28] MEDS: ATORVASTATIN 40 MG TABLET PO SCH (20:12)
[2022-06-28] MEDS: PREGABALIN 100 MG CAPSULE PO SCH (20:13)
[2022-06-28] MEDS: TRAZODONE 100 MG TABLET PO PRN (20:13)
--- NOTE | 2022-06-28 21:03 | NUR ---
Patient in bed at this time, awake, no sob, no acute distress noted, used of urinal. family at bed side (), call light within easy reach. will continue to monitor.
[2022-06-29 04:00] VITALS: BP 156/62
--- NOTE | 2022-06-29 05:42 | NUR ---
Slept well last night, o2 3lpm via NC and o2 sat = 95 %, no sob, no acute distress noted,
[2022-06-29] MEDS: PANTOPRAZOLE SODIUM 40 MG TABLET.DR PO SCH (06:15)
[2022-06-29 06:53] LABS: HEMATOCRIT 27.4 % (36.7-47.1); MEAN CORPUSCULAR HEMOGLOBIN 24.5 uug (23.8-33.4); MEAN CORPUSCULAR VOLUME 76.5 fL (73.0-96.2); PLATELET COUNT (AUTO) 308 K/uL (152-348)
--- NOTE | 2022-06-29 07:12 | NUR ---
Bladder scan = 743ml call Pravin Concepcion / noted new order of insert greer catheter Carried out. urine out put = 800ml
[2022-06-29 07:24] LABS: BILIRUBIN,TOTAL 0.5 mg/dL (0.2-1.0); CREATININE 0.8 mg/dL (0.6-1.3); POTASSIUM 3.8 mmol/L (3.5-5.1); TOTAL PROTEIN, SERUM 6.2 g/dL (6.4-8.2)
[2022-06-29] MEDS: SUCRALFATE 1 G TABLET PO SCH ×4 (08:54→20:25)
[2022-06-29] MEDS: CLOPIDOGREL 75 MG TABLET PO SCH (08:54)
[2022-06-29] MEDS: POTASSIUM CHLORIDE 20 MEQ TAB.PRT.SR PO SCH (08:55)
[2022-06-29] MEDS: FUROSEMIDE 40 MG/4 ML VIAL IV SCH ×2 (08:55→20:25)
[2022-06-29] MEDS: FLUTICASONE/VILANTEROL 1 EACH BLST.W.DEV INH SCH (09:00)
[2022-06-29] MEDS: LOSARTAN POTASSIUM 50 MG TABLET PO SCH (09:00)
[2022-06-29] MEDS ORDERED: LOSARTAN POTASSIUM 50 MG TABLET PO SCH (09:00)
[2022-06-29] MEDS ORDERED: ACETAzolamide 250 MG TABLET PO ONE (09:00)
[2022-06-29] MEDS ORDERED: AMLODIPINE 5 MG TABLET PO SCH (09:00)
[2022-06-29] MEDS: METOPROLOL SUCCINATE XL 50 MG TAB.SR.24H PO SCH (09:02)
[2022-06-29] MEDS: ISOSORBIDE MONONITRATE 30 MG TAB.SR.24H PO SCH (09:04)
[2022-06-29 11:22] LABS: THYROID STIMULATING HORMONE 1.367 mIU/mL (0.358-3.740)
[2022-06-29 12:00] VITALS: BP 119/48
[2022-06-29 12:41] LABS: EOSINOPHILS % (MANUAL) 4 % (0-8); LYMPHOCYTES % (MANUAL) 32 % (20-40); MONOCYTES % (MANUAL) 11 % (2-10); NEUTROPHILS % (MANUAL) 53 % (42-75)
[2022-06-29 16:00] VITALS: BP 146/43
[2022-06-29] MEDS: OXYCODONE HCL 5 MG TABLET PO PRN (16:41)
[2022-06-29] MEDS: SOD FERRIC GLUC COMPLX/SUCROSE 125 MG in IV NORMAL SALINE 100 ML IV SCH (18:52)
--- NOTE | 2022-06-29 19:10 | NUR ---
Patient is resting in bed, Patient had one episode of SOB during shift oxygen increased to 5 L and repositioned, Patient eventually started sating at 97%. Patient's oxygen then brought back down to 3L. Patient is still on 3L NC, at bedside. IV sit changed to right forearm. All medications given as ordered. Safety measures are in place. Stool and urine specimen endorsed to oncoming nurse.
[2022-06-29 20:00] VITALS: BP 131/51
[2022-06-29] MEDS: ATORVASTATIN 40 MG TABLET PO SCH (20:25)
[2022-06-29] MEDS: PREGABALIN 100 MG CAPSULE PO SCH (20:25)
[2022-06-29] MEDS: TRAZODONE 100 MG TABLET PO PRN (20:25)
--- NOTE | 2022-06-29 20:39 | NUR ---
Patient in bed at this time, awake, AAOx4, no sob, no acute distress noted, family at bedside (), o2 3lpm via NC, kept semi steen' position 35 degree, able to makes needs known, call light with in easy reach, will continue to monitor,
[2022-06-29 21:36] LABS: *BILIRUBIN,URIN NEGATIVE (NEGATIVE); *BLOOD, URINE 1+ (NEGATIVE); *CLARITY,URINE CLEAR (CLEAR); *COLOR,URINE YELLOW (YELLOW); *KETONES,URINE NEGATIVE (NEGATIVE); *UROBILINOGEN,URINE 0.2 E.U./dl (NORMAL); LEUKOCYTE ESTERASE ,URINE 2+ (NEGATIVE); NITRITE, URINE NEGATIVE (NEGATIVE); PH,URINE 7.5 (5.0-8.0); UGLUCOSE NEGATIVE (NEGATIVE)
[2022-06-29 21:42] LABS: BACTERIA,URINE FEW /HPF (NONE SEEN); SQUAMOUS EPITHELIAL CELL,UR FEW /HPF (NONE SEEN)
--- NOTE | 2022-06-30 00:05 | NUR ---
IN BED ,RESTING QUIETLY, NEEDS ATTENDED TO.,ALERT,ORIENTED X4,OXYGEN INHALATION AT3L/MIN VIA NASAL CANNULA. NO COMPLAINTS PRESENTED.
[2022-06-30] MEDS: PANTOPRAZOLE SODIUM 40 MG TABLET.DR PO SCH (06:12)
[2022-06-30 06:35] LABS: HEMATOCRIT 29.4 % (36.7-47.1); MEAN CORPUSCULAR HEMOGLOBIN 24.5 uug (23.8-33.4); MEAN CORPUSCULAR VOLUME 76.3 fL (73.0-96.2); PLATELET COUNT (AUTO) 353 K/uL (152-348)
[2022-06-30 07:03] LABS: BILIRUBIN,TOTAL 0.4 mg/dL (0.2-1.0); POTASSIUM 3.8 mmol/L (3.5-5.1); TOTAL PROTEIN, SERUM 6.9 g/dL (6.4-8.2)
[2022-06-30 08:47] LABS: MAGNESIUM 1.7 mg/dL (1.8-2.4); PHOSPHOROUS 3.5 mg/dL (2.5-4.9)
[2022-06-30] MEDS: ISOSORBIDE MONONITRATE 30 MG TAB.SR.24H PO SCH (09:00)
[2022-06-30] MEDS: LOSARTAN POTASSIUM 50 MG TABLET PO SCH (09:00)
[2022-06-30] MEDS: SUCRALFATE 1 G TABLET PO SCH ×4 (09:42→20:36)
[2022-06-30] MEDS: CLOPIDOGREL 75 MG TABLET PO SCH (09:42)
[2022-06-30] MEDS: METOPROLOL SUCCINATE XL 50 MG TAB.SR.24H PO SCH (09:43)
[2022-06-30] MEDS: FLUTICASONE/VILANTEROL 1 EACH BLST.W.DEV INH SCH (09:44)
[2022-06-30] MEDS ORDERED: MAGNESIUM OXIDE 400 MG TABLET PO ONE (10:00)
[2022-06-30] MEDS ORDERED: ACETAzolamide 250 MG TABLET PO ONE (10:00)
[2022-06-30] MEDS: FUROSEMIDE 40 MG/4 ML VIAL IV SCH ×2 (10:40→21:28)
[2022-06-30] MEDS: CEFTRIAXONE 1 G in IV DEXTROSE 5% 50 ML IV SCH (10:40)
[2022-06-30 11:41] VITALS: BP 145/54
[2022-06-30] MEDS: SOD FERRIC GLUC COMPLX/SUCROSE 125 MG in IV NORMAL SALINE 100 ML IV SCH (14:53)
[2022-06-30 16:00] VITALS: BP 151/63
[2022-06-30] MEDS: OXYCODONE HCL 5 MG TABLET PO PRN (18:56)
--- NOTE | 2022-06-30 19:00 | NUR ---
Patient awake seated at the bed, with , no complain of pain at this time, sat wnl no sob no chest pain. patient has no IV lines will reinsert another one, cont to monitor.
[2022-06-30 19:51] VITALS: BP 144/51
[2022-06-30] MEDS: PREGABALIN 100 MG CAPSULE PO SCH (20:36)
[2022-06-30] MEDS: ATORVASTATIN 40 MG TABLET PO SCH (20:36)
--- NOTE | 2022-06-30 22:00 | NUR ---
Report given to the next nurse, reinsert iv lines tolerate well,
[2022-06-30] MEDS: TRAZODONE 100 MG TABLET PO PRN (22:59)
--- NOTE | 2022-07-01 | NUR ---
RECD PT SITTED ON BEDSIDE. NO DISTRESS NOTED,slept at short intervals.
[2022-07-01 04:22] VITALS: BP 137/48
[2022-07-01 06:27] LABS: HEMATOCRIT 28.1 % (36.7-47.1); MEAN CORPUSCULAR VOLUME 77.3 fL (73.0-96.2); PLATELET COUNT (AUTO) 320 K/uL (152-348)
[2022-07-01 06:57] LABS: BILIRUBIN,TOTAL 0.2 mg/dL (0.2-1.0); MAGNESIUM 1.8 mg/dL (1.8-2.4); PHOSPHOROUS 3.9 mg/dL (2.5-4.9); POTASSIUM 4.1 mmol/L (3.5-5.1); TOTAL PROTEIN, SERUM 6.7 g/dL (6.4-8.2)
[2022-07-01] MEDS: PANTOPRAZOLE SODIUM 40 MG TABLET.DR PO SCH (07:20)
--- NOTE | 2022-07-01 08:40 | NUR ---
pt alert and cooperative. no sob, no pain noted. at bedside. pt is ambulatory and make his need known. self care. pt bring food from out side. educate pt and regarding adverse effect of too much salt for the pt. pt and non compliance.
[2022-07-01] MEDS: FLUTICASONE/VILANTEROL 1 EACH BLST.W.DEV INH SCH (09:00)
[2022-07-01] MEDS: METOPROLOL SUCCINATE XL 50 MG TAB.SR.24H PO SCH (09:00)
[2022-07-01] MEDS: LOSARTAN POTASSIUM 50 MG TABLET PO SCH (09:00)
[2022-07-01] MEDS: ISOSORBIDE MONONITRATE 30 MG TAB.SR.24H PO SCH (09:00)
[2022-07-01] MEDS: SUCRALFATE 1 G TABLET PO SCH ×3 (09:31→17:34)
[2022-07-01] MEDS: CLOPIDOGREL 75 MG TABLET PO SCH (09:31)
[2022-07-01] MEDS: FUROSEMIDE 40 MG/4 ML VIAL IV SCH (09:31)
[2022-07-01] MEDS: MAGNESIUM SULFATE/D5W 100 ML IV SCH ×2 (09:32→13:21)
[2022-07-01] MEDS: CEFTRIAXONE 1 G in IV DEXTROSE 5% 50 ML IV SCH (10:00)
[2022-07-01 11:47] VITALS: BP 137/48
--- NOTE | 2022-07-01 13:00 | NUR ---
pt is clear for discharge. notified pt and his family
[2022-07-01] MEDS: SOD FERRIC GLUC COMPLX/SUCROSE 125 MG in IV NORMAL SALINE 100 ML IV SCH (13:23)
[2022-07-01] MEDS ORDERED: ALBU8.5H8 INH (14:09)
[2022-07-01] MEDS ORDERED: LOSA50TA3 PO (14:09)
[2022-07-01] MEDS ORDERED: PANT40TA49 PO (14:09)
[2022-07-01] MEDS ORDERED: ATOR20TA PO (14:09)
--- NOTE | 2022-07-01 15:53 | NUR ---
EDUCATED PATIENT ABOUT CHF DISEASE PROCESS. PT VERBALIZED UNDERSTANDING
[2022-07-01 15:54] VITALS: BP 132/46
[2022-07-01 16:27] LABS: BAND % (MANUAL) 1 % (0-10); EOSINOPHILS % (MANUAL) 2 % (0-8); LYMPHOCYTES % (MANUAL) 21 % (20-40); MONOCYTES % (MANUAL) 11 % (2-10); NEUTROPHILS % (MANUAL) 65 % (42-75)
[2022-07-01] MEDS ORDERED: FUROSEMIDE 40 MG TABLET PO SCH (17:00)
--- NOTE | 2022-07-01 18:10 | NUR ---
PT IS DISCHARGE. ALL BELONGINGS ACCOUNTED FOR. PT WILL GO HOME WITH HIS . EDUCATION PROVIDED REGARDING DISCHARGE PLAN.
== END 2022-07-01 18:05 | disposition home health service (06) | DRG 280 ==
LOC: ER 17:30 → TELE3 06-26 12:10 → MEDSURG3 06-27 18:37
PROVIDERS: ADMIT Nurse Practitioner Acute Care; ATTEND Internal Medicine
DX: I11.0 Hypertensive heart disease with heart failure (principal); I21.A1 Myocardial infarction type 2; G92.8 Other toxic encephalopathy; I50.33 Acute on chronic diastolic (congestive) heart failure; J96.21 Acute and chronic respiratory failure with hypoxia; J96.22 Acute and chronic respiratory failure with hypercapnia; E87.1 Hypo-osmolality and hyponatremia; J90 Pleural effusion, not elsewhere classified; D68.59 Other primary thrombophilia; N39.0 Urinary tract infection, site not specified; E66.9 Obesity, unspecified; G47.00 Insomnia, unspecified; I25.10 Atherosclerotic heart disease of native coronary artery without angina pectoris; Z98.61 Coronary angioplasty status; Z20.822 Contact with and (suspected) exposure to COVID-19; I27.20 Pulmonary hypertension, unspecified; J44.9 Chronic obstructive pulmonary disease, unspecified; Z99.81 Dependence on supplemental oxygen; G43.909 Migraine, unspecified, not intractable, without status migrainosus; Z74.09 Other reduced mobility; D50.9 Iron deficiency anemia, unspecified; R73.03 Prediabetes; Z87.891 Personal history of nicotine dependence; N40.1 Benign prostatic hyperplasia with lower urinary tract symptoms; Z86.718 Personal history of other venous thrombosis and embolism; I07.1 Rheumatic tricuspid insufficiency
CPT/HCPCS: 36415; 36600; 70030-TC; 71045; 82803; 83550; 83605; 83735; 84100; 84153; 84443; 84484; 85025; 85730; 87040; 87086; 93005; 93307; 94640; A4663; G0378; J0360; J0696; J1650; J1940; J2270; J2916; J2930; J3475; J3590; J8499

== ENCOUNTER 2023-03-19 22:09 | Inpatient (IN) | payer MEDICARE, BC ==
[~2023-03-19] VITALS: Ht 185.4 cm; Wt 99.8 kg
[~2023-03-19 22:09] MED LIST changes: +ALBU8.5H8 INH; -ASPI81TA31 PO; +ATOR20TA PO; -CLOP75TA15 PO; +CLOP75TA33 PO; -FURO-151 PO; +ISOS30TA86 PO; +LOSA50TA3 PO; -LOSA50TA39 PO; -METH4TAB3 PO; +OXYC5TAB3 PO; -PANT40TA2 PO; +PANT40TA49 PO; -PREG100C GT; +PREG100C PO; -SUCR1TAB PO
[2023-03-19] MEDS ORDERED: ALBUTEROL SULFATE 2.5 MG/3 ML NEBU ONE (22:13)
[2023-03-19] MEDS ORDERED: IPRATROPIUM BROMIDE 0.5 MG/2.5 ML NEBU ONE (22:14)
[2023-03-19] MEDS ORDERED: FUROSEMIDE 40 MG/4 ML VIAL IV ONE (22:15)
[2023-03-19] MEDS ORDERED: NITROGLYCERIN IV 250 ML IV ONE (22:15)
[2023-03-19] MEDS ORDERED: ASPIRIN 81 MG TAB.CHEW PO ONE (22:15)
[2023-03-19] MEDS ORDERED: ALBUTEROL SULFATE 2.5 MG/3 ML NEBU NEB ONE (22:15)
[2023-03-19] MEDS ORDERED: IPRATROPIUM BROMIDE 0.5 MG/2.5 ML NEBU NEB ONE (22:15)
[2023-03-19] MEDS ORDERED: methylPREDNISolone SOD SUCC 125 MG/2 ML VIAL IV ONE (22:15)
[2023-03-19 22:20] VITALS: O2SAT 98
[2023-03-19] MEDS ORDERED: FUROSEMIDE 40 MG/4 ML VIAL ONE (22:23)
[2023-03-19] MEDS ORDERED: methylPREDNISolone SOD SUCC 125 MG/2 ML VIAL ONE (22:23)
[2023-03-19] MEDS ORDERED: ASPIRIN 81 MG TAB.CHEW ONE (22:23)
[2023-03-19] MEDS ORDERED: NITROGLYCERIN IV 250 ML ONE (22:24)
[2023-03-19] MEDS: NITROGLYCERIN IV 250 ML IV PRN ×3 (22:33→23:49)
[2023-03-19] MEDS ORDERED: ALBU2.5V38 NEB (22:36)
[2023-03-19] MEDS ORDERED: POTA-88 PO (22:36)
[2023-03-19] MEDS ORDERED: BUDE10.2 INH (22:36)
[2023-03-19] MEDS ORDERED: METF-440 PO (22:36)
[2023-03-19] MEDS ORDERED: METO2.5T2 PO (22:36)
[2023-03-19] MEDS ORDERED: APIX5TAB PO (22:36)
[2023-03-19] MEDS ORDERED: CANA100T PO (22:36)
[2023-03-19] MEDS ORDERED: ATOR40TA PO (22:36)
[2023-03-19] MEDS ORDERED: DULA0.75 SQ (22:36)
[2023-03-19] MEDS ORDERED: SACU1TAB PO (22:36)
[2023-03-19] MEDS ORDERED: IPRA0.2S48 NEB (22:36)
[2023-03-19] MEDS ORDERED: INSU3INS6 SQ (22:36)
[2023-03-19] MEDS ORDERED: PANT40TA49 PO (22:36)
[2023-03-19] MEDS ORDERED: INSU100V39 SQ (22:36)
[2023-03-19] MEDS ORDERED: METO-357 PO (22:36)
[2023-03-19] MEDS ORDERED: MIRT-94 PO (22:36)
[2023-03-19] MEDS ORDERED: FURO40TA5 PO (22:36)
[2023-03-19] MEDS ORDERED: FERR-68 PO (22:36)
[2023-03-19] MEDS ORDERED: INSU100I14 (22:36)
[2023-03-19] MEDS ORDERED: TRAZ-257 PO (22:36)
[2023-03-19] MEDS ORDERED: HYDR-3973 PO (22:36)
[2023-03-19] MEDS ORDERED: LEVA0.6320 NEB (22:36)
[2023-03-19] MEDS ORDERED: PREG100C PO (22:36)
[2023-03-19 22:43] LABS: HEMATOCRIT 32.9 % (36.7-47.1); MEAN CORPUSCULAR HEMOGLOBIN 30.5 uug (23.8-33.4); MEAN CORPUSCULAR VOLUME 87.5 fL (73.0-96.2); PLATELET COUNT (AUTO) 301 K/uL (152-348)
[2023-03-19] MEDS ORDERED: levoFLOXacin 750 MG/D5W 150 ML PIGGYBACK IV ONE (23:00)
[2023-03-19 23:03] LABS: ABG BASE EXCESS 5.6 mmol/L; ABG HCO3 32.3 mmol/L; ABG PCO2 57.1 mmHg (35.0-45.0); ABG PO2 417.9 mmHg (75.0-100.0); ABG SITE LEFT RADIAL; ABG TOTAL HEMOGLOBIN 12.3 G/dL (13.5-18.0); COHb 0.9 % (0.5-1.5); MetHb 0.3 % (0.0-1.5); O2Hb 98.5 % (94.0-97.0); VENT MODE HF - Aquinox
[2023-03-19] MEDS ORDERED: levoFLOXacin 750MG/D5W 150 ML IV ONE (23:04)
[2023-03-19 23:06] LABS: ALANINE AMINOTRANSFERASE 33 U/L (16-63); ALKALINE PHOSPHATASE 103 U/L (50-136); ASPARTATE AMINOTRANSFERASE 24 U/L (15-37); BILIRUBIN,DIRECT 0.1 mg/dL (0.0-0.2); BILIRUBIN,TOTAL 0.4 mg/dL (0.2-1.0); CARBON DIOXIDE 38 mmol/L (21-32); CREATININE 0.8 mg/dL (0.6-1.3); GLUCOSE 120 mg/dL (74-106); TOTAL PROTEIN, SERUM 7.3 g/dL (6.4-8.2); UREA NITROGEN, BLOOD 11 mg/dL (7-18)
[2023-03-19 23:12] LABS: CHLORIDE 78 mmol/L (98-107)
[2023-03-19 23:20] VITALS: O2SAT 98
[2023-03-19] MEDS ORDERED: ENALAPRILAT DIHYDRATE 1.25 MG/1 ML VIAL IV ONE ×2 (23:29→23:30)
[2023-03-19 23:40] LABS: *OCCULT BLOOD STOOL NEGATIVE (NEGATIVE)
[2023-03-19] MEDS ORDERED: ENOXAPARIN SODIUM 100 MG/ML DISP.SYRIN SQ ONE ×2 (23:43→23:45)
[2023-03-19] MEDS ORDERED: LIDOCAINE 2% (GLYDO= UROJET) 10 ML JELLY MM ONE ×2 (23:45)
[2023-03-20] VITALS (15 sets, daily range): BP systolic 109–152; BP diastolic 56–89; TEMP 98.5; O2SAT 96–100
[2023-03-20] MEDS ORDERED: MORPHINE SULFATE 4 MG/1 ML DISP.SYRIN ONE ×6 (00:05→23:49)
--- NOTE | 2023-03-20 00:13 | NUR ---
Called [facility] for panel call. Benji MERCADO production operations engineer. Waiting for call back.
--- NOTE | 2023-03-20 00:14 | NUR ---
Dr. Turner on panel call with Benji MERCADO. Pending admission.
[2023-03-20] MEDS ORDERED: MORPHINE SULFATE 4 MG/1 ML DISP.SYRIN IV ONE (00:15)
--- NOTE | 2023-03-20 00:24 | NUR ---
High flow nasal cannula at 4L 100%.
[2023-03-20] MEDS ORDERED: DEXTROSE 50% 50 ML DISP.SYRIN IV PRN (00:30)
[2023-03-20] MEDS ORDERED: MORPHINE SULFATE 2 MG/1 ML DISP.SYRIN IV PRN (00:30)
[2023-03-20] MEDS ORDERED: MAGNESIUM HYDROXIDE 30 ML LIQUID UDC PO PRN (00:30)
--- NOTE | 2023-03-20 00:35 | NUR ---
Per journeyman powerhouse operator no CCU beds available. Patient will remain in ER and ER charting will be done.
[2023-03-20 00:51] LABS: *BILIRUBIN,URIN NEGATIVE (NEGATIVE); *CLARITY,URINE CLEAR (CLEAR); *COLOR,URINE YELLOW (YELLOW); *KETONES,URINE NEGATIVE (NEGATIVE); *UROBILINOGEN,URINE 0.2 E.U./dl (NORMAL); LEUKOCYTE ESTERASE ,URINE NEGATIVE (NEGATIVE); NITRITE, URINE NEGATIVE (NEGATIVE); PH,URINE 6.5 (5.0-8.0); UGLUCOSE NEGATIVE (NEGATIVE)
--- NOTE | 2023-03-20 00:55 | NUR ---
Called [facility] to speak to César Leblanc, told him that patient has 100cc of urine in indwelling greer catheter bag after an hour of placement. Informed him that 40mg of lasix was given at 2230. No additional orders given.
[2023-03-20 00:56] LABS: *BLOOD, URINE TRACE (NEGATIVE)
--- NOTE | 2023-03-20 01:02 | NUR ---
Patient's at bedside. Patient is awake and resting in bed, rise and fall of chest noted.
--- NOTE | 2023-03-20 01:47 | NUR ---
Called after hours pharmacy to verify inpatient medications.
--- NOTE | 2023-03-20 02:46 | NUR ---
Paged [facility] for hospital bed for patient in ER.
--- NOTE | 2023-03-20 03:21 | NUR ---
Walked into patient's room and found left forearm 20G IV removed and out of site. MD notified.
--- NOTE | 2023-03-20 03:27 | NUR ---
High flow nasal cannula at 30L Fio2 at 100%.
[2023-03-20 06:55] LABS: BACTERIA,URINE FEW /HPF (NONE SEEN); RBC,URINE 0-3 /HPF (0-3); SQUAMOUS EPITHELIAL CELL,UR FEW /HPF (NONE SEEN)
[2023-03-20 06:57] LABS: WBC,URINE 0-3 /HPF (0-3)
[2023-03-20] MEDS ORDERED: ONDANSETRON 4 MG/2 ML VIAL ONE (07:26)
[2023-03-20] MEDS: ONDANSETRON 4 MG/2 ML VIAL IV PRN (07:30)
--- NOTE | 2023-03-20 07:30 | NUR ---
Morphine 4mg wasted with Alecia WELDON. Patient refused medication.
--- NOTE | 2023-03-20 07:31 | NUR ---
Gave report to Caitlyn WELDON.
--- NOTE | 2023-03-20 08:04 | NUR ---
Accepted care, patient resting in bed, no voiced c/o pain or discomfort at this time. Updated on plan of care, no s/s of any distress noted. Patient is awake, remains alert and oriented x3, lung sounds are diminished with rhonchi, abd is distended with positive bowel sounds, generalized edema noted, BLE discoloration, BUE with some bruised areas. HL x 2 remains intact, IVF as per order via the pump, O2 remains in use at high flow at 30%, greer cath remains intact. A.M. care done at this time with complete bed change,repositioned for comfort,, HOB remains elevated. Morning blood glucose was 218, side rails up will continue to monitor.
--- NOTE | 2023-03-20 08:14 | NUR ---
Bedside echo being done at this time.
[2023-03-20] MEDS: BLOOD SUGAR DIAGNOSTIC 1 EACH STRIP VI SCH ×4 (08:15→21:38)
[2023-03-20] MEDS ORDERED: INSULIN REGULAR, HUMAN 300 UNIT/3 ML VIAL ONE (08:23)
[2023-03-20] MEDS: INSULIN REGULAR, HUMAN 300 UNIT/3 ML VIAL SQ PRN ×5 (08:25→21:51)
[2023-03-20] MEDS ORDERED: PANTOPRAZOLE SODIUM 40 MG VIAL ONE (09:00)
[2023-03-20] MEDS: PANTOPRAZOLE SODIUM 40 MG VIAL IV SCH (09:07)
[2023-03-20] MEDS: ENOXAPARIN SODIUM 120 MG/0.8 ML SYRINGE SQ SCH ×2 (09:09→21:43)
--- NOTE | 2023-03-20 09:22 | NUR ---
PICC line nurse at bedside to place mid-line, patient remains without any c/o at this time.
--- NOTE | 2023-03-20 09:36 | NUR ---
at bedside, updated on plan of care.
--- NOTE | 2023-03-20 09:51 | NUR ---
Spoke with gracie Garcia for heart healthy diet and mid line placement.
--- NOTE | 2023-03-20 10:00 | NUR ---
at bedside feeding patient, continues without c/o.
--- NOTE | 2023-03-20 10:28 | NUR ---
Patient sleeping at this time, easy to arouse, remains at bedside.
--- NOTE | 2023-03-20 10:45 | NUR ---
Dr Rider at bedside talking with patient and .
[2023-03-20] MEDS: FUROSEMIDE 40 MG/4 ML VIAL IV SCH ×2 (11:48→21:38)
[2023-03-20] MEDS ORDERED: FUROSEMIDE 40 MG/4 ML VIAL ONE ×2 (11:48→21:30)
--- NOTE | 2023-03-20 11:53 | NUR ---
Patient awake, medicated as per order, nitro drip titrated to 15 mcg/hr at this time, will continue to monitor.
[2023-03-20] MEDS ORDERED: VALSARTAN 160 MG TABLET PO SCH (12:00)
[2023-03-20] MEDS ORDERED: ENOXAPARIN SODIUM 120 MG/0.8 ML SYRINGE SQ SCH (12:00)
--- NOTE | 2023-03-20 12:47 | NUR ---
MD at bedside talking with patient.
--- NOTE | 2023-03-20 13:22 | NUR ---
remains at bedside, no voiced c/o pain or discomfort, no change in primary assessment.
[2023-03-20] MEDS ORDERED: IV NORMAL SALINE 250 ML IV ONE (13:35)
[2023-03-20] MEDS ORDERED: SWABABLE VALVE TRANSFER SET EA MC ONE (13:35)
[2023-03-20] MEDS ORDERED: IOHEXOL 350 100 ML INFUS..BTL ONE (13:35)
[2023-03-20 13:38] LABS: CREATININE 0.9 mg/dL (0.6-1.3); MAGNESIUM 1.5 mg/dL (1.8-2.4); PHOSPHOROUS 4.3 mg/dL (2.5-4.9)
[2023-03-20 13:46] LABS: POTASSIUM 4.8 mmol/L (3.5-5.1)
[2023-03-20] MEDS: CLOPIDOGREL 75 MG TABLET PO SCH (13:48)
[2023-03-20] MEDS ORDERED: CLOPIDOGREL 75 MG TABLET ONE (13:48)
[2023-03-20 14:06] LABS: THYROID STIMULATING HORMONE 1.075 mIU/mL (0.358-3.740)
--- NOTE | 2023-03-20 14:38 | NUR ---
Patient offf unit and returned from CT, awaiting results. Placed back on monitor and IVF, remains at bedside.HOB elevated to facilitate breathing, back on high flow. side rails up, will continue to monitor.
--- NOTE | 2023-03-20 15:14 | NUR ---
Respiratory at bedside.
--- NOTE | 2023-03-20 16:20 | NUR ---
Patient family remains at bedside, no voiced c/o pain or discomfort at this time. moist occasional cough noted, o2 remains in use.
[2023-03-20] MEDS ORDERED: IPRATROPIUM BROMIDE 0.5 MG/2.5 ML NEBU ONE (17:11)
[2023-03-20] MEDS ORDERED: ALBUTEROL SULFATE 2.5 MG/3 ML NEBU ONE (17:11)
[2023-03-20] MEDS: ALBUTEROL SULFATE 2.5 MG/3 ML NEBU NEB PRN (17:32)
--- NOTE | 2023-03-20 18:37 | NUR ---
Patient resting in bed, states right hip with slight pain, repositioned for comfort.
--- NOTE | 2023-03-20 18:44 | NUR ---
Urine output 1400cc
--- NOTE | 2023-03-20 18:51 | NUR ---
Patient sitting up at bedside, now c/o 10/10 right hip pain, will be medicated as per order.
[2023-03-20] MEDS: MORPHINE SULFATE 4 MG/1 ML DISP.SYRIN IV PRN ×2 (18:57→23:06)
--- NOTE | 2023-03-20 19:13 | NUR ---
Report given to Armen, patient remains stable.
[2023-03-20] MEDS ORDERED: ENOXAPARIN SODIUM 100 MG/ML DISP.SYRIN SQ ONE (21:31)
[2023-03-20] MEDS ORDERED: MORPHINE SULFATE 10 MG/1 ML DISP.SYRIN IV PRN (23:50)
--- NOTE | 2023-03-20 23:50 | NUR ---
Ineffective relief right hip pain, with Morphine 4 mg. Unable to contact O/C N.P. SAMEER Barrientos MD to bedside; order received.
[2023-03-21] VITALS (31 sets, daily range): BP systolic 92–175; BP diastolic 33–119; TEMP 98.3–99.2; O2SAT 96–100
[2023-03-21] MEDS ORDERED: MORPHINE SULFATE 10 MG/1 ML DISP.SYRIN IV PRN
[2023-03-21 04:54] LABS: HEMATOCRIT 32.5 % (36.7-47.1); MEAN CORPUSCULAR HEMOGLOBIN 30.4 uug (23.8-33.4); MEAN CORPUSCULAR VOLUME 88.7 fL (73.0-96.2); PLATELET COUNT (AUTO) 319 K/uL (152-348)
[2023-03-21 04:58] LABS: BAND % (MANUAL) 2 % (0-10); EOSINOPHILS % (MANUAL) 1 % (0-8); LYMPHOCYTES % (MANUAL) 16 % (20-40); MONOCYTES % (MANUAL) 10 % (2-10)
[2023-03-21 04:59] LABS: NEUTROPHILS % (MANUAL) 71 % (42-75)
[2023-03-21 05:06] LABS: CARBON DIOXIDE 36 mmol/L (21-32); CHLORIDE 81 mmol/L (98-107); CHOLESTEROL 147 mg/dL (<200); CREATININE 1.6 mg/dL (0.6-1.3); GLUCOSE 138 mg/dL (74-106); HDL CHOLESTEROL 65 mg/dL (40-60); MAGNESIUM 1.7 mg/dL (1.8-2.4); PHOSPHOROUS 4.9 mg/dL (2.5-4.9); POTASSIUM 4.4 mmol/L (3.5-5.1); TRIGLYCERIDES 74 MG/DL (30-150); UREA NITROGEN, BLOOD 22 mg/dL (7-18)
[2023-03-21 05:15] LABS: THYROID STIMULATING HORMONE 2.141 mIU/mL (0.358-3.740)
--- NOTE | 2023-03-21 06:45 | NUR ---
Contacted pts Kierra [phone]. Informed her: had horrible right hip pain reason we gave him a strong dose of Morphine. Prior patient thought he was going to & requested we tell his : he loves her. Also, was informed pt is still somnolent. doesn't know why pt has scars on right hip.
--- NOTE | 2023-03-21 07:00 | NUR ---
Received pt. semi-lethargic responsive to painful stimuli, on /off restless agitated. does not follow directions. on NSR rate in the 80-90's, SBP within desired limits, and as reported off nitroglycerin drip since 2300 last night. ON high flow 30L 70% fio2. RR in the mid-20's. greer to gravity. Over all skin with small patches of scratches. patient remains restless agitated and scratching himself and attempting to removed IV access. all over with small area of bleeding to scalp and body. Will continue to monitor.
--- NOTE | 2023-03-21 08:00 | NUR ---
Pt. seen by hand leather trimmer Dr. Fajardo. report given orders to continue with care plan received. informed that pt. put out a total of 275cc urine during the assistant casino shift manager as reported this am.
[2023-03-21] MEDS: BLOOD SUGAR DIAGNOSTIC 1 EACH STRIP VI SCH ×4 (08:25→21:13)
[2023-03-21] MEDS ORDERED: FUROSEMIDE 20 MG/2 ML VIAL ONE (08:45)
[2023-03-21] MEDS ORDERED: PANTOPRAZOLE SODIUM 40 MG VIAL ONE (08:45)
[2023-03-21] MEDS ORDERED: ENOXAPARIN SODIUM 100 MG/ML DISP.SYRIN SQ ONE (08:45)
--- NOTE | 2023-03-21 08:45 | NUR ---
Pt. seen by case management manager Dr. Davidson, report given see orders.
[2023-03-21] MEDS ORDERED: MAGNESIUM SULFATE/D5W 200 ML ONE (08:46)
[2023-03-21] MEDS: PANTOPRAZOLE SODIUM 40 MG VIAL IV SCH (08:47)
[2023-03-21] MEDS: MAGNESIUM SULFATE/D5W 100 ML IV SCH ×2 (08:53→10:26)
[2023-03-21] MEDS: ENOXAPARIN SODIUM 120 MG/0.8 ML SYRINGE SQ SCH (08:53)
[2023-03-21] MEDS ORDERED: VALSARTAN 160 MG TABLET PO SCH (09:00)
[2023-03-21] MEDS: CLOPIDOGREL 75 MG TABLET PO SCH (09:00)
[2023-03-21] MEDS ORDERED: ENOXAPARIN SODIUM 120 MG/0.8 ML SYRINGE SQ SCH (09:00)
[2023-03-21] MEDS: AMLODIPINE 5 MG TABLET PO SCH (09:00)
[2023-03-21] MEDS ORDERED: MAGNESIUM SULFATE/D5W 100 ML IV SCH (10:45)
[2023-03-21] MEDS: CEFTRIAXONE 1 G in IV DEXTROSE 5% 50 ML IV SCH (10:57)
[2023-03-21] MEDS ORDERED: methylPREDNISolone SOD SUCC 40 MG/ML VIAL ONE ×3 (11:00→21:04)
[2023-03-21] MEDS: methylPREDNISolone SOD SUCC 40 MG/ML VIAL IV SCH ×3 (11:02→21:13)
[2023-03-21] MEDS: AZITHROMYCIN IV 500 MG in IV DEXTROSE 5% 250 ML IV SCH (12:08)
[2023-03-21] MEDS: IPRATROPIUM BROMIDE 0.5 MG/2.5 ML NEBU NEB SCH ×2 (13:35→19:31)
[2023-03-21] MEDS: ALBUTEROL SULFATE 2.5 MG/3 ML NEBU NEB SCH ×2 (13:35→19:31)
--- NOTE | 2023-03-21 14:25 | NUR ---
Patient with continuous cough and saturation above 93%. tachypneic. responsive to name.
--- NOTE | 2023-03-21 14:30 | NUR ---
ABG's ordered under attending result at [address] Man and orders for BIPAP 18/6 RAte of 18 FIO2 50%. by RT Joseph Lentz. at bedside.
--- NOTE | 2023-03-21 14:33 | NUR ---
pt. with persistent cough shallow breathing and nodding pale, cold and nodding yes to to question. Are you feeling short of breath?, denies pain. Addendum: 03/21/23 at 1519 by BEATRIZ CLARK RN saturation of 96%
[2023-03-21 14:53] LABS: ABG HCO3 32.9 mmol/L; ABG PCO2 73.4 mmHg (35.0-45.0); ABG PH 7.269 (7.350-7.450); ABG PO2 84.2 mmHg (75.0-100.0); ABG SITE RIGHT RADIAL; ABG TOTAL HEMOGLOBIN 12.1 G/dL (13.5-18.0); COHb 0.9 % (0.5-1.5); MetHb 0.2 % (0.0-1.5); O2Hb 95.3 % (94.0-97.0); VENT MODE HF - 30L 50%
[2023-03-21] MEDS ORDERED: MORPHINE SULFATE 4 MG/1 ML DISP.SYRIN ONE (16:05)
[2023-03-21] MEDS: MORPHINE SULFATE 4 MG/1 ML DISP.SYRIN IV PRN (16:06)
--- NOTE | 2023-03-21 16:18 | NUR ---
Pt. remains restless and agitated, on BIPAP SBP greater than [address] Davidson cardiology services. Order for hydralazine 10mg Q4H prn for sbp above 170's received and implemented.
[2023-03-21] MEDS ORDERED: hydrALAZINE HCL 20 MG/1 ML VIAL IV PRN (16:30)
[2023-03-21] MEDS ORDERED: IPRATROPIUM BROMIDE 0.5 MG/2.5 ML NEBU ONE (19:29)
[2023-03-21] MEDS ORDERED: ALBUTEROL SULFATE 2.5 MG/3 ML NEBU ONE (19:29)
[2023-03-21] MEDS ORDERED: ATORVASTATIN 20 MG TABLET ONE (21:04)
[2023-03-21] MEDS: ATORVASTATIN 40 MG TABLET PO SCH (21:13)
[2023-03-21] MEDS: INSULIN REGULAR, HUMAN 300 UNIT/3 ML VIAL SQ PRN (21:40)
[2023-03-22] VITALS (31 sets, daily range): BP systolic 92–174; BP diastolic 48–98; TEMP 98.7–99.5; O2SAT 93–100
[2023-03-22] MEDS ORDERED: INSULIN REGULAR, HUMAN 300 UNIT/3 ML VIAL ONE (02:22)
[2023-03-22] MEDS ORDERED: MORPHINE SULFATE 4 MG/1 ML DISP.SYRIN ONE ×2 (02:23→15:19)
[2023-03-22] MEDS: MORPHINE SULFATE 4 MG/1 ML DISP.SYRIN IV PRN ×2 (02:26→08:18)
[2023-03-22] MEDS ORDERED: hydrALAZINE HCL 20 MG/1 ML VIAL ONE (02:36)
[2023-03-22 05:24] LABS: HEMATOCRIT 31.9 % (36.7-47.1); MEAN CORPUSCULAR HEMOGLOBIN 29.8 uug (23.8-33.4); MEAN CORPUSCULAR VOLUME 88.6 fL (73.0-96.2); PLATELET COUNT (AUTO) 354 K/uL (152-348)
[2023-03-22 05:30] LABS: ALANINE AMINOTRANSFERASE 29 U/L (16-63); ALKALINE PHOSPHATASE 95 U/L (50-136); ASPARTATE AMINOTRANSFERASE 20 U/L (15-37); BILIRUBIN,TOTAL 0.5 mg/dL (0.2-1.0); CARBON DIOXIDE 33 mmol/L (21-32); CREATININE 2.9 mg/dL (0.6-1.3); GLUCOSE 180 mg/dL (74-106); MAGNESIUM 2.8 mg/dL (1.8-2.4); PHOSPHOROUS 4.8 mg/dL (2.5-4.9); POTASSIUM 4.6 mmol/L (3.5-5.1); TOTAL PROTEIN, SERUM 7.4 g/dL (6.4-8.2); UREA NITROGEN, BLOOD 41 mg/dL (7-18)
[2023-03-22 05:42] LABS: CHLORIDE 80 mmol/L (98-107)
--- NOTE | 2023-03-22 06:00 | NUR ---
Pt received in room 1A ER, On BIPAP 18/6 bur 18 fio2 45% Pt confused and needs constantly reorientation and education about BIPAP, family member at bedside updated with plan of care. Pt has bilateral mittens on to keep line and BIPAP mask in place. Pt was medicated with Morphine Sulfate due to restless and discomfort at 0400 POLYSOMNOGRAPH TECH Benji was notified about HR 145 NO FURTHER orders given. Lab call with troponin elevated notified crate repairer Dr Davidson who will come to see pt in an hour, no further orders given HR REMAINS ON THE 100'S pt denies pain no SOB rn resource nurse and sat 99% on Fio2 40% observed some improvement on hyponatremia Pt confused but able to follow directions, endorse care to incoming nurse
[2023-03-22 06:04] LABS: IRON, SERUM 26 ug/dL (50-175)
[2023-03-22] MEDS ORDERED: PANTOPRAZOLE SODIUM 40 MG TABLET.DR PO ONE (06:10)
[2023-03-22] MEDS ORDERED: methylPREDNISolone SOD SUCC 40 MG/ML VIAL ONE ×3 (06:11→21:25)
[2023-03-22] MEDS: methylPREDNISolone SOD SUCC 40 MG/ML VIAL IV SCH ×3 (06:17→21:26)
[2023-03-22] MEDS: PANTOPRAZOLE SODIUM 40 MG TABLET.DR PO SCH (06:18)
--- NOTE | 2023-03-22 07:05 | NUR ---
Cardiology services Dr. Rider in to examine pt. report given orders for ABG received.
[2023-03-22] MEDS ORDERED: ALBUTEROL SULFATE 2.5 MG/3 ML NEBU ONE ×4 (07:23→20:57)
[2023-03-22] MEDS ORDERED: IPRATROPIUM BROMIDE 0.5 MG/2.5 ML NEBU ONE ×4 (07:23→20:57)
[2023-03-22] MEDS: BLOOD SUGAR DIAGNOSTIC 1 EACH STRIP VI SCH ×4 (07:30→21:36)
[2023-03-22 07:36] LABS: ABG BASE EXCESS 4.1 mmol/L; ABG HCO3 28.5 mmol/L; ABG PH 7.449 (7.350-7.450); ABG PO2 123.6 mmHg (75.0-100.0); ABG SITE LEFT BRACHIAL; ABG TOTAL HEMOGLOBIN 12.5 G/dL (13.5-18.0); COHb 0.8 % (0.5-1.5); MetHb 0.1 % (0.0-1.5); VENT MODE BIPAP
[2023-03-22] MEDS: IPRATROPIUM BROMIDE 0.5 MG/2.5 ML NEBU NEB SCH ×4 (07:36→21:43)
[2023-03-22] MEDS: ALBUTEROL SULFATE 2.5 MG/3 ML NEBU NEB SCH ×4 (07:36→21:44)
--- NOTE | 2023-03-22 08:00 | NUR ---
ABG results received, adequete oxygenation, BIPAP removed and placed on 4LNC.
--- NOTE | 2023-03-22 08:20 | NUR ---
PT awake, restless, ECG sinus tachycardia, RR 28-30, adequete saturation per pulse oximeter 96%. Calms with verbal reassurance. medivated with Morphine 4 mg. at bedside reassuring patient.
--- NOTE | 2023-03-22 08:30 | NUR ---
Pt seen and examined by Dr Fajardo aware of low U..O and am labs, no further orders at this time.
--- NOTE | 2023-03-22 08:40 | NUR ---
0730 Received report from RN. Pt awake, oriented to person, restless, able to follow smple commands. ECG SR VSS, Saturation maintained on BIPAP. ABG drawn and pending. See full assessment.
[2023-03-22] MEDS ORDERED: ENOXAPARIN SODIUM 120 MG/0.8 ML SYRINGE SQ SCH (09:00)
[2023-03-22] MEDS ORDERED: CLOPIDOGREL 75 MG TABLET ONE (09:05)
[2023-03-22] MEDS ORDERED: AMLODIPINE 5 MG TABLET ONE (09:05)
[2023-03-22] MEDS ORDERED: CEFTRIAXONE /D5W 50ML IVPB **ER PYXIS IV ONE (09:35)
[2023-03-22] MEDS ORDERED: ONDANSETRON 4 MG/2 ML VIAL ONE ×2 (09:38→21:02)
[2023-03-22 09:41] LABS: CARBON DIOXIDE 31 mmol/L (21-32); CREATININE 3.6 mg/dL (0.6-1.3); GLUCOSE 186 mg/dL (74-106); POTASSIUM 4.7 mmol/L (3.5-5.1); UREA NITROGEN, BLOOD 45 mg/dL (7-18)
[2023-03-22] MEDS: AMLODIPINE 5 MG TABLET PO SCH (09:46)
[2023-03-22] MEDS: CLOPIDOGREL 75 MG TABLET PO SCH (09:47)
[2023-03-22 09:55] LABS: CHLORIDE 80 mmol/L (98-107)
[2023-03-22] MEDS: CEFTRIAXONE 1 G in IV DEXTROSE 5% 50 ML IV SCH (09:59)
--- NOTE | 2023-03-22 10:00 | NUR ---
Pt seen and examined by Dr Delgadillo. reviewd AM ABG's. Received verbal order for respiratory treatments mucomyst 10% 2ml Q6hrs
[2023-03-22] MEDS: ONDANSETRON 4 MG/2 ML VIAL IV PRN ×2 (10:01→21:05)
[2023-03-22] MEDS: ACETYLCYSTEINE 10% 4ML VIAL NEB SCH ×2 (10:54→13:30)
[2023-03-22] MEDS ORDERED: ACETYLCYSTEINE 10% 4ML VIAL ONE (10:56)
--- NOTE | 2023-03-22 11:00 | NUR ---
Pt with difficulty clearing thick secretions, given mucomyst treatment and CPT by RT,tolerated well.
[2023-03-22] MEDS: AZITHROMYCIN IV 500 MG in IV DEXTROSE 5% 250 ML IV SCH (11:26)
[2023-03-22] MEDS ORDERED: ALPRAZOLAM 0.25 MG TABLET ONE ×3 (11:39→21:38)
[2023-03-22] MEDS: INSULIN REGULAR, HUMAN 300 UNIT/3 ML VIAL SQ PRN ×3 (11:41→21:35)
[2023-03-22] MEDS: ALPRAZOLAM 0.25 MG TABLET PO PRN ×3 (11:42→21:39)
--- NOTE | 2023-03-22 12:00 | NUR ---
Pt awake, restless, expectorating large ampunts of thick green sputum. Lungs sounds coarse with rhonchi upper [place] and bi-basilar rales. maintaining sPO2 96-98% on 4LNC. at bedside, pt needing constant reassurance and verbal reinforcement.
--- NOTE | 2023-03-22 15:00 | NUR ---
Received respiratory treatments. Lung sounds with less rhonchi in upper [place], bi-basilar sPO2 99% oxygen titrated down to 3LNC. Strong productive cough of thick yellow-green secretions.
[2023-03-22] MEDS: ACETYLCYSTEINE 20% 800 MG/4 ML VIAL NEB SCH ×2 (15:13→23:30)
--- NOTE | 2023-03-22 18:00 | NUR ---
Pt sleeping for short periods, awakes to voice, orineted to person/place anxious and cooperative, needs reorientation to time and activities of pulmonary toileting. VSS remains on 3LNC with saturation >94%. Taking full liquids as tolerated. medicated with Xanax .25mg for anxiety and given verbal reassurance. at bedside.
[2023-03-22] MEDS ORDERED: ATORVASTATIN 20 MG TABLET ONE (20:34)
[2023-03-22] MEDS: ATORVASTATIN 40 MG TABLET PO SCH (20:35)
[2023-03-22] MEDS ORDERED: ACETYLCYSTEINE 20% 800 MG/4 ML VIAL ONE (21:00)
[2023-03-22] MEDS ORDERED: ACETAMINOPHEN 325 MG TABLET ONE (21:44)
[2023-03-22] MEDS: ACETAMINOPHEN 325 MG TABLET PO PRN (21:45)
[2023-03-23] VITALS (35 sets, daily range): BP systolic 91–161; BP diastolic 47–92; TEMP 97.7–98.8; O2SAT 94–100
--- NOTE | 2023-03-23 00:01 | NUR ---
Very confused; talking constantly, unable to reorientate.
[2023-03-23 04:47] LABS: HEMATOCRIT 29.8 % (36.7-47.1); MEAN CORPUSCULAR HEMOGLOBIN 30.8 uug (23.8-33.4); PLATELET COUNT (AUTO) 305 K/uL (152-348)
[2023-03-23 04:59] LABS: CARBON DIOXIDE 32 mmol/L (21-32); CHLORIDE 82 mmol/L (98-107); CREATININE 4.9 mg/dL (0.6-1.3); GLUCOSE 185 mg/dL (74-106); MAGNESIUM 2.5 mg/dL (1.8-2.4); PHOSPHOROUS 6.7 mg/dL (2.5-4.9); POTASSIUM 4.9 mmol/L (3.5-5.1); UREA NITROGEN, BLOOD 64 mg/dL (7-18)
[2023-03-23] MEDS ORDERED: PANTOPRAZOLE SODIUM 40 MG TABLET.DR PO ONE (06:01)
[2023-03-23] MEDS ORDERED: methylPREDNISolone SOD SUCC 40 MG/ML VIAL ONE ×3 (06:01→20:20)
[2023-03-23] MEDS: methylPREDNISolone SOD SUCC 40 MG/ML VIAL IV SCH ×3 (06:02→21:20)
[2023-03-23] MEDS: PANTOPRAZOLE SODIUM 40 MG TABLET.DR PO SCH (06:02)
--- NOTE | 2023-03-23 07:20 | NUR ---
Received report from PM shift Armen WELDON. Pt lying in bed with eyes closed, awakes to voice, oriented to person, difficulty comprehending and following simple commands. MAEx4. VSS see full assessment. LFA hHL not patent d/c'd. Pt bleeding from site, pressure help and dressing applied
[2023-03-23] MEDS ORDERED: IPRATROPIUM BROMIDE 0.5 MG/2.5 ML NEBU ONE ×5 (07:27→23:07)
[2023-03-23] MEDS ORDERED: ALBUTEROL SULFATE 2.5 MG/ 0.5 ML NEBU ONE (07:27)
[2023-03-23 07:41] LABS: ABG BASE EXCESS 2.6 mmol/L; ABG HCO3 28.6 mmol/L; ABG PCO2 50.1 mmHg (35.0-45.0); ABG PH 7.374 (7.350-7.450); ABG PO2 83.7 mmHg (75.0-100.0); ABG SITE LEFT RADIAL; ABG TOTAL HEMOGLOBIN 11.5 G/dL (13.5-18.0); COHb 0.7 % (0.5-1.5); MetHb 0.1 % (0.0-1.5); O2Hb 95.2 % (94.0-97.0); VENT MODE Nasal Cannula
[2023-03-23] MEDS: IPRATROPIUM BROMIDE 0.5 MG/2.5 ML NEBU NEB SCH ×4 (07:46→19:13)
[2023-03-23] MEDS: ACETYLCYSTEINE 20% 800 MG/4 ML VIAL NEB SCH ×3 (07:46→23:18)
[2023-03-23] MEDS: ALBUTEROL SULFATE 2.5 MG/3 ML NEBU NEB SCH ×4 (07:46→19:13)
[2023-03-23] MEDS: BLOOD SUGAR DIAGNOSTIC 1 EACH STRIP VI SCH ×4 (07:49→21:14)
[2023-03-23] MEDS ORDERED: ACETYLCYSTEINE 20% 800 MG/4 ML VIAL ONE ×3 (07:50→23:07)
[2023-03-23] MEDS: INSULIN REGULAR, HUMAN 300 UNIT/3 ML VIAL SQ PRN ×4 (07:52→21:17)
--- NOTE | 2023-03-23 08:30 | NUR ---
Pt seen and examined by Dr Rider, will hold Norvasc per BP parameters this am. plan to continue Plavix and will discontinue Lovenox.
--- NOTE | 2023-03-23 08:45 | NUR ---
Pt remains confused, seen and examined by Dr. Fajardo, spoke with and updated on patients condition and renal status, discussed possible need for dialysis if renal function does not improve. verbalized understanding.
[2023-03-23] MEDS ORDERED: BUMETANIDE INJ 4 MG in IV DEXTROSE 5% 24 ML IV ONE (09:00)
[2023-03-23] MEDS: AMLODIPINE 5 MG TABLET PO SCH (09:00)
--- NOTE | 2023-03-23 09:00 | NUR ---
Pt seen and examined by Dr. Delgadillo, no new orders at this time
[2023-03-23] MEDS ORDERED: CLOPIDOGREL 75 MG TABLET ONE (09:23)
[2023-03-23] MEDS: CLOPIDOGREL 75 MG TABLET PO SCH (09:24)
[2023-03-23] MEDS: CEFTRIAXONE 1 G in IV DEXTROSE 5% 50 ML IV SCH (09:55)
[2023-03-23 10:45] LABS: *BLOOD, URINE 2+ (NEGATIVE); *CLARITY,URINE SLIGHTLY CLOUDY (CLEAR); *COLOR,URINE YELLOW (YELLOW); *KETONES,URINE NEGATIVE (NEGATIVE); *UROBILINOGEN,URINE 0.2 E.U./dl (NORMAL); LEUKOCYTE ESTERASE ,URINE TRACE (NEGATIVE); NITRITE, URINE NEGATIVE (NEGATIVE); UGLUCOSE NEGATIVE (NEGATIVE)
[2023-03-23] MEDS ORDERED: ALBUTEROL SULFATE 2.5 MG/3 ML NEBU ONE ×4 (10:50→23:07)
[2023-03-23 10:56] LABS: *URINE TOTAL PROTEIN RANDOM 123.3 mg/dL (<150/24HR)
[2023-03-23] MEDS: AZITHROMYCIN IV 500 MG in IV DEXTROSE 5% 250 ML IV SCH (11:03)
--- NOTE | 2023-03-23 11:50 | NUR ---
Dereck De La Cruz and at this time I was informed that He and Dr. Fajardo discussed the need of HD insertion and to prepare for HD insertion.
--- NOTE | 2023-03-23 12:02 | NUR ---
A message from Pravin Figueroa who inquire about HD consent at this time N.P. was informed that Dr. Fajardo discussed issue wit pt. this morning and pt. and Kierra agreed to procedure. Addendum: 03/23/23 at 1516 by BEATRIZ CLARK RN Orders to prepare for HD insertion received. Patient consented at this time.
[2023-03-23 12:21] LABS: *BILIRUBIN,URIN 1+ (NEGATIVE)
[2023-03-23 12:58] LABS: BACTERIA,URINE MANY /HPF (NONE SEEN); RBC,URINE 20-50 /HPF (0-3); SQUAMOUS EPITHELIAL CELL,UR FEW /HPF (NONE SEEN); WBC,URINE 0-3 /HPF (0-3)
--- NOTE | 2023-03-23 13:45 | NUR ---
Right groin 13FR dual lumen 24 cm catheter placed in right groin by Trent Martin NP. Pt tolerated well. VSS
--- NOTE | 2023-03-23 14:15 | NUR ---
Office Administration Dr. Fajardo notified that pt. has HD access, and to input HD orders.
--- NOTE | 2023-03-23 15:09 | NUR ---
A second call to Dr. Fajardo HD nurse Flavio at bedside as stated by azure architect " Tell him He can go after all today there is no need for HD."
[2023-03-23 15:39] LABS: HEMATOCRIT 30.5 % (36.7-47.1); MEAN CORPUSCULAR HEMOGLOBIN 30.4 uug (23.8-33.4); MEAN CORPUSCULAR VOLUME 90.2 fL (73.0-96.2); PLATELET COUNT (AUTO) 351 K/uL (152-348)
[2023-03-23 15:51] LABS: CARBON DIOXIDE 28 mmol/L (21-32); CREATININE 5.1 mg/dL (0.6-1.3); GLUCOSE 185 mg/dL (74-106); POTASSIUM 4.8 mmol/L (3.5-5.1); UREA NITROGEN, BLOOD 73 mg/dL (7-18)
[2023-03-23 15:54] LABS: CHLORIDE 80 mmol/L (98-107)
--- NOTE | 2023-03-23 16:30 | NUR ---
Dr Fajardo received results of BMP no further orders at this time, plan to reevaluate for HD tomorrow am. pt and informed and verbalized understanding.
--- NOTE | 2023-03-23 17:31 | NUR ---
Ultrasound of kidneys performed r/o obstruction.
[2023-03-23] MEDS ORDERED: ATORVASTATIN 20 MG TABLET ONE (20:19)
[2023-03-23] MEDS: ATORVASTATIN 40 MG TABLET PO SCH (20:25)
[2023-03-23] MEDS: ALBUTEROL SULFATE 2.5 MG/3 ML NEBU NEB PRN (23:17)
[2023-03-24] VITALS (29 sets, daily range): BP systolic 109–159; BP diastolic 68–95; TEMP 97.1–98.9; O2SAT 91–99
--- NOTE | 2023-03-24 00:01 | NUR ---
Pt mouth breathing & desaturating; started simple mask 6L.
[2023-03-24 04:50] LABS: HEMATOCRIT 30.3 % (36.7-47.1); MEAN CORPUSCULAR HEMOGLOBIN 30.7 uug (23.8-33.4); PLATELET COUNT (AUTO) 312 K/uL (152-348)
[2023-03-24 05:37] LABS: CARBON DIOXIDE 31 mmol/L (21-32); CHLORIDE 81 mmol/L (98-107); GLUCOSE 201 mg/dL (74-106); MAGNESIUM 2.7 mg/dL (1.8-2.4); PHOSPHOROUS 7.7 mg/dL (2.5-4.9); POTASSIUM 4.9 mmol/L (3.5-5.1)
[2023-03-24 05:39] LABS: UREA NITROGEN, BLOOD 83 mg/dL (7-18)
[2023-03-24] MEDS ORDERED: methylPREDNISolone SOD SUCC 40 MG/ML VIAL ONE ×2 (06:21→14:58)
[2023-03-24] MEDS ORDERED: PANTOPRAZOLE SODIUM 40 MG TABLET.DR PO ONE (06:22)
[2023-03-24] MEDS: PANTOPRAZOLE SODIUM 40 MG TABLET.DR PO SCH (06:23)
[2023-03-24] MEDS: methylPREDNISolone SOD SUCC 40 MG/ML VIAL IV SCH ×3 (06:23→22:59)
[2023-03-24] MEDS ORDERED: IPRATROPIUM BROMIDE 0.5 MG/2.5 ML NEBU ONE ×2 (07:23→15:03)
[2023-03-24] MEDS ORDERED: ALBUTEROL SULFATE 2.5 MG/3 ML NEBU ONE ×2 (07:23→15:03)
[2023-03-24] MEDS: ACETYLCYSTEINE 20% 800 MG/4 ML VIAL NEB SCH ×3 (07:26→23:01)
[2023-03-24] MEDS: ALBUTEROL SULFATE 2.5 MG/3 ML NEBU NEB SCH ×4 (07:26→19:40)
[2023-03-24] MEDS: IPRATROPIUM BROMIDE 0.5 MG/2.5 ML NEBU NEB SCH ×4 (07:26→19:40)
[2023-03-24] MEDS: BLOOD SUGAR DIAGNOSTIC 1 EACH STRIP VI SCH ×4 (07:30→20:36)
[2023-03-24] MEDS ORDERED: ACETYLCYSTEINE 20% 800 MG/4 ML VIAL ONE ×2 (07:31→15:03)
[2023-03-24] MEDS: INSULIN REGULAR, HUMAN 300 UNIT/3 ML VIAL SQ PRN ×4 (07:33→20:44)
[2023-03-24 07:44] LABS: ABG BASE EXCESS -0.7 mmol/L; ABG HCO3 24.8 mmol/L; ABG PCO2 44.3 mmHg (35.0-45.0); ABG PH 7.366 (7.350-7.450); ABG SITE LEFT BRACHIAL; ABG TOTAL HEMOGLOBIN 11.5 G/dL (13.5-18.0); COHb 0.6 % (0.5-1.5); MetHb 0.1 % (0.0-1.5); O2Hb 98.3 % (94.0-97.0)
[2023-03-24] MEDS ORDERED: FUROSEMIDE 20 MG/2 ML VIAL IV ONE (07:45)
[2023-03-24] MEDS ORDERED: METOLAZONE 2.5 MG TABLET PO ONE (07:45)
[2023-03-24] MEDS ORDERED: FUROSEMIDE 40 MG/4 ML VIAL ONE (07:58)
[2023-03-24] MEDS ORDERED: CEFTRIAXONE /D5W 50ML IVPB **ER PYXIS IV ONE (07:58)
[2023-03-24] MEDS ORDERED: CLOPIDOGREL 75 MG TABLET ONE (07:58)
[2023-03-24] MEDS ORDERED: AMLODIPINE 5 MG TABLET ONE (07:59)
[2023-03-24] MEDS: CLOPIDOGREL 75 MG TABLET PO SCH (08:04)
[2023-03-24] MEDS: CEFTRIAXONE 1 G in IV DEXTROSE 5% 50 ML IV SCH (08:05)
[2023-03-24] MEDS: AMLODIPINE 5 MG TABLET PO SCH (09:00)
--- NOTE | 2023-03-24 11:00 | NUR ---
All consultants in to see patient. Pulmonary, cardiology, and nephrology agree to continue diuresing at this time and will follow up with patient response to diuretics.
[2023-03-24] MEDS ORDERED: AZITHROMYCIN 500MG/ D5W 250ML IVPB **ER PYXIS ONLY IV ONE (11:06)
[2023-03-24] MEDS: AZITHROMYCIN IV 500 MG in IV DEXTROSE 5% 250 ML IV SCH (11:07)
--- NOTE | 2023-03-24 16:17 | NUR ---
Taty T[employer]ING SUPERVISOR spoke to Dr. Delgadillo if okay to downgrade. ordered for SHANIA status.
--- NOTE | 2023-03-24 19:00 | NUR ---
Received patient in bed, alert x 2 confused, tele monitor sinus rhythm, on oxygen 3 liters sat 97%, complain of room being hot, Engineering staff came with electric fan, room is cool and comfortable, at bedside, cont to monitor.
[2023-03-24] MEDS: ATORVASTATIN 40 MG TABLET PO SCH (20:36)
[2023-03-24] MEDS: ALPRAZOLAM 0.25 MG TABLET PO PRN (20:41)
--- NOTE | 2023-03-24 20:41 | NUR ---
Patient has episode of anxiety, keep repeating self, reorient patient, at bedside, request to give something for , given xanax 25mg po prn as ordered, cont to monitor.
[2023-03-25] VITALS (15 sets, daily range): BP systolic 105–131; BP diastolic 42–74; TEMP 97.1–98.8; O2SAT 93–100
[2023-03-25] MEDS: methylPREDNISolone SOD SUCC 40 MG/ML VIAL IV SCH ×2 (06:05→20:23)
[2023-03-25] MEDS: PANTOPRAZOLE SODIUM 40 MG TABLET.DR PO SCH (06:06)
[2023-03-25] MEDS: BLOOD SUGAR DIAGNOSTIC 1 EACH STRIP VI SCH ×4 (06:20→20:59)
[2023-03-25 06:24] LABS: HEMATOCRIT 29.4 % (36.7-47.1); MEAN CORPUSCULAR VOLUME 89.5 fL (73.0-96.2); PLATELET COUNT (AUTO) 311 K/uL (152-348)
[2023-03-25 06:47] LABS: CARBON DIOXIDE 34 mmol/L (21-32); CHLORIDE 84 mmol/L (98-107); CREATININE 3.9 mg/dL (0.6-1.3); GLUCOSE 215 mg/dL (74-106); MAGNESIUM 3.1 mg/dL (1.8-2.4); POTASSIUM 4.4 mmol/L (3.5-5.1)
[2023-03-25 07:02] LABS: UREA NITROGEN, BLOOD 99 mg/dL (7-18)
[2023-03-25] MEDS ORDERED: FUROSEMIDE 40 MG/4 ML VIAL IV ONE (07:45)
[2023-03-25] MEDS: IPRATROPIUM BROMIDE 0.5 MG/2.5 ML NEBU NEB SCH ×4 (07:46→21:01)
[2023-03-25] MEDS: ALBUTEROL SULFATE 2.5 MG/3 ML NEBU NEB SCH ×4 (07:46→21:01)
[2023-03-25] MEDS: ACETYLCYSTEINE 20% 800 MG/4 ML VIAL NEB SCH ×3 (07:46→21:03)
[2023-03-25] MEDS: AMLODIPINE 5 MG TABLET PO SCH (08:24)
[2023-03-25] MEDS: CLOPIDOGREL 75 MG TABLET PO SCH (08:24)
[2023-03-25] MEDS: ALPRAZOLAM 0.25 MG TABLET PO PRN ×2 (09:57→23:15)
[2023-03-25] MEDS: CEFTRIAXONE 1 G in IV DEXTROSE 5% 50 ML IV SCH (10:25)
[2023-03-25] MEDS: INSULIN REGULAR, HUMAN 300 UNIT/3 ML VIAL SQ PRN ×3 (11:48→21:00)
[2023-03-25] MEDS: AZITHROMYCIN IV 500 MG in IV DEXTROSE 5% 250 ML IV SCH (12:31)
[2023-03-25 13:07] LABS: HEPATITIS B SURFACE AG Negative (Negative)
[2023-03-25] MEDS: METOPROLOL SUCCINATE XL 50 MG TAB.SR.24H PO SCH (18:46)
--- NOTE | 2023-03-25 19:30 | NUR ---
RECEIVED PATIENT LAYING IN BED WITH AT BEDSIDE. ALERT AND ORIENTED X2-3, OFTEN FORGETFUL AND NEEDY. ON O2 VIA NC 3L 95% O2 SAT. SAFETY MEASURES IN PLACE. WILL CONTINUE PLAN OF CARE.
[2023-03-25] MEDS: ATORVASTATIN 40 MG TABLET PO SCH (20:23)
[2023-03-25] MEDS: MORPHINE SULFATE 4 MG/1 ML DISP.SYRIN IV PRN (20:24)
[2023-03-25] MEDS: TRAZODONE 50 MG TABLET PO SCH (22:21)
[2023-03-26] VITALS (10 sets, daily range): BP systolic 104–127; BP diastolic 54–58; TEMP 98.3; O2SAT 91–98
[2023-03-26] MEDS: ALBUTEROL SULFATE 2.5 MG/3 ML NEBU NEB PRN (00:28)
[2023-03-26] MEDS ORDERED: ZOLPIDEM 5 MG TABLET PO ONE (01:30)
[2023-03-26] MEDS: MORPHINE SULFATE 4 MG/1 ML DISP.SYRIN IV PRN ×2 (03:03→16:15)
[2023-03-26] MEDS: ACETYLCYSTEINE 20% 800 MG/4 ML VIAL NEB SCH (06:11)
[2023-03-26] MEDS: IPRATROPIUM BROMIDE 0.5 MG/2.5 ML NEBU NEB SCH ×4 (06:12→21:25)
[2023-03-26] MEDS: ALBUTEROL SULFATE 2.5 MG/3 ML NEBU NEB SCH ×4 (06:12→21:25)
[2023-03-26 06:18] LABS: HEMATOCRIT 31.8 % (36.7-47.1); MEAN CORPUSCULAR HEMOGLOBIN 30.6 uug (23.8-33.4); MEAN CORPUSCULAR VOLUME 89.8 fL (73.0-96.2); PLATELET COUNT (AUTO) 318 K/uL (152-348)
[2023-03-26] MEDS: PANTOPRAZOLE SODIUM 40 MG TABLET.DR PO SCH (06:21)
[2023-03-26] MEDS: BLOOD SUGAR DIAGNOSTIC 1 EACH STRIP VI SCH ×4 (06:27→21:00)
[2023-03-26 06:32] LABS: CARBON DIOXIDE 38 mmol/L (21-32); CHLORIDE 85 mmol/L (98-107); CREATININE 2.5 mg/dL (0.6-1.3); GLUCOSE 215 mg/dL (74-106); MAGNESIUM 2.8 mg/dL (1.8-2.4); PHOSPHOROUS 5.9 mg/dL (2.5-4.9); POTASSIUM 4.7 mmol/L (3.5-5.1)
[2023-03-26 06:45] LABS: UREA NITROGEN, BLOOD 101 mg/dL (7-18)
--- NOTE | 2023-03-26 06:55 | NUR ---
PATIENT HAD DIFFICULTY SLEEPING, TRAZADONE GIVEN 50 MG PER GAVIN WALTERS DE ICER KIT ASSEMBLER'S ORDER=NOT EFFECTIVE. AMBIEN GIVEN X1 5 MG PER DOCTOR MAGGIE. SAFETY MEASURES IN PLACE, HOURLY ROUNDING COMPLETED. CONTINUE TO MONITOR, CONTINUE PLAN OF CARE.
--- NOTE | 2023-03-26 07:30 | NUR ---
NIGHT REPORT: 1) NEUROLOGICAL: AO x 2-3, tends to be confused and forgetfulness. 2) BREATHING: On RA - Sats in the high 90s, no sign of SOB, or distress observed. 3) CARDIOLOGY: Telemetry patient - normal sinus rhythm. No c/o of chest pain or sign of chest pain. 4) GASTROINTESTINAL: No issues- needs assistance with feeding - feeder. 5) INTEGUMENTARY: Skin intact - bruises observed - remains on bedrest. 6) GENITOURINARY: Patient doubly incontinent - all care required. 7) SAFETY: Bed lowered, bed alarm in-situ. 8) PLAN: Will continue to assess, plan, implement, and evaluate care accordingly.
[2023-03-26] MEDS: NEPRO (VANILLA) 237 ML CAN PO SCH (09:00)
[2023-03-26] MEDS: CLOPIDOGREL 75 MG TABLET PO SCH (09:01)
[2023-03-26] MEDS: AMLODIPINE 5 MG TABLET PO SCH (09:02)
[2023-03-26] MEDS: METOPROLOL SUCCINATE XL 50 MG TAB.SR.24H PO SCH (09:02)
[2023-03-26] MEDS: methylPREDNISolone SOD SUCC 40 MG/ML VIAL IV SCH ×2 (09:03→21:00)
[2023-03-26] MEDS: CEFTRIAXONE 1 G in IV DEXTROSE 5% 50 ML IV SCH (09:04)
--- NOTE | 2023-03-26 09:10 | NUR ---
MD REVIEW: 1) Patient need rehab prior to discharge home. 2) However, patient in denial - feels that home rehab will be beneficial, seem to differ. 3) informed MD patient needs more laxatives - no bowel movement for a few days. 4) MD ordered Docusate and continue on Milk of Magnesium
[2023-03-26] MEDS ORDERED: TRAZODONE 50 MG TABLET PO PRN (09:45)
--- NOTE | 2023-03-26 10:00 | NUR ---
AM MEDICATION ADMINISTRATION - Included Milk of Magnesium for constipation
--- NOTE | 2023-03-26 11:00 | NUR ---
MIDLINE CAME OFF - SUPERVISING BAILIFF INFORMED
[2023-03-26] MEDS: INSULIN REGULAR, HUMAN 300 UNIT/3 ML VIAL SQ PRN (12:16)
[2023-03-26] MEDS: DOCUSATE SODIUM 100 MG CAPSULE PO SCH ×2 (12:22→21:00)
--- NOTE | 2023-03-26 13:02 | NUR ---
ASKED FOR ICE PACK - C/O OF FEELING HOT, CHECKED TEMPERATURE - 97.5 ORALLY.
--- NOTE | 2023-03-26 14:45 | NUR ---
URETHRA PAIN: 1) C/o of urethra pain. 2) No bleeding, or open skin observed - penal area looks red instead 3) Will inform MD
--- NOTE | 2023-03-26 15:00 | NUR ---
MIDLINE INSERTION - WHEEL INSPECTOR STATED - WILL BE DONE AT 21:30HRS
--- NOTE | 2023-03-26 15:00 | NUR ---
INSERTED IV PERIPHERAL TO RIGHT UPPER - 20 G
--- NOTE | 2023-03-26 15:06 | NUR ---
URINALYSIS; 1) MD orders AU 2) Urine specimen taken and sent to lab. 3) Await results
[2023-03-26] MEDS: ONDANSETRON 4 MG/2 ML VIAL IV PRN (16:15)
--- NOTE | 2023-03-26 16:16 | NUR ---
PAIN MANAGEMENT: 1) C/o of shoulder pain 2) Ice therapy unsuccessful 3) Morphine administered awaiting effect
--- NOTE | 2023-03-26 17:26 | NUR ---
BLOOD SUGAR - 114 - NO INSULIN COVER REQUIRED
--- NOTE | 2023-03-26 18:32 | NUR ---
END OF SHIFT REPORT: 1) Patient comfortable at the time of this report. 2) No further complaints from patient. 3) Offered some more ice 4) Will endorse care to night staff accordingly
[2023-03-26] MEDS: TRAZODONE 50 MG TABLET PO SCH (21:00)
[2023-03-26] MEDS: ATORVASTATIN 40 MG TABLET PO SCH (21:00)
[2023-03-27] VITALS (8 sets, daily range): BP systolic 93–129; BP diastolic 38–78; TEMP 97.3–98.4; O2SAT 93–100
[2023-03-27] MEDS: MORPHINE SULFATE 4 MG/1 ML DISP.SYRIN IV PRN ×3 (00:03→22:07)
[2023-03-27] MEDS: BLOOD SUGAR DIAGNOSTIC 1 EACH STRIP VI SCH ×4 (06:32→20:53)
[2023-03-27] MEDS: PANTOPRAZOLE SODIUM 40 MG TABLET.DR PO SCH (06:32)
[2023-03-27 06:34] LABS: HEMATOCRIT 36.1 % (36.7-47.1); MEAN CORPUSCULAR HEMOGLOBIN 30.5 uug (23.8-33.4); MEAN CORPUSCULAR VOLUME 92.2 fL (73.0-96.2); PLATELET COUNT (AUTO) 356 K/uL (152-348)
[2023-03-27 06:46] LABS: CARBON DIOXIDE 37 mmol/L (21-32); CHLORIDE 84 mmol/L (98-107); CREATININE 2.4 mg/dL (0.6-1.3); PHOSPHOROUS 5.4 mg/dL (2.5-4.9); POTASSIUM 5.3 mmol/L (3.5-5.1)
[2023-03-27] MEDS: ALBUTEROL SULFATE 2.5 MG/3 ML NEBU NEB SCH ×4 (07:35→19:30)
[2023-03-27] MEDS: IPRATROPIUM BROMIDE 0.5 MG/2.5 ML NEBU NEB SCH ×4 (07:35→19:30)
[2023-03-27 07:38] LABS: GLUCOSE 301 mg/dL (74-106)
--- NOTE | 2023-03-27 07:39 | NUR ---
END SHIFT REPORT: PT SLEPT MOST SHIFT WOKE UP AND GAVE MEDICATION FALL AND SAFETY MAINTAINED PT GIVEN ACCUCHEK AM BLOOD SUGAR 293 NO SIGNS OF DIABETIC REACTION NOTED. FALL AND SAFETY MAINTAINED WILL ENDORSE TO AM NURSE.
[2023-03-27 07:41] LABS: UREA NITROGEN, BLOOD 105 mg/dL (7-18)
--- NOTE | 2023-03-27 08:00 | NUR ---
Pt alert and oriented x 3 pt however is forgetful at times. Pt At edge of bed sitting up for breakfast. Lung sound diminished lower lobes. Educated proper use of IS x 10reps q1 wa. Pt able to return demonstrate proper use. Encourage pt to use IS. o2 @ 3 lit n/c. Noted 2 port central line on right groin no bleeding noted. Noted bruising on right forearm. IV on RIght ac reposition and re taped - no s/s of infiltration flushing with minimal resistance. SNR on tele. Awaiting ML RN as pt tends to infiltrate his ivs even with proper taping. Pt is in no acute distress.
[2023-03-27] MEDS: INSULIN REGULAR, HUMAN 300 UNIT/3 ML VIAL SQ PRN ×4 (08:07→20:56)
[2023-03-27] MEDS: DOCUSATE SODIUM 100 MG CAPSULE PO SCH ×2 (08:54→21:13)
[2023-03-27] MEDS: CLOPIDOGREL 75 MG TABLET PO SCH (08:54)
[2023-03-27] MEDS: methylPREDNISolone SOD SUCC 40 MG/ML VIAL IV SCH (08:54)
[2023-03-27] MEDS: AMLODIPINE 5 MG TABLET PO SCH (09:04)
[2023-03-27] MEDS: METOPROLOL SUCCINATE XL 50 MG TAB.SR.24H PO SCH (09:04)
[2023-03-27] MEDS: NEPRO (VANILLA) 237 ML CAN PO SCH (09:05)
[2023-03-27] MEDS: CEFTRIAXONE 1 G in IV DEXTROSE 5% 50 ML IV SCH (11:25)
--- NOTE | 2023-03-27 14:00 | NUR ---
Noted Chest percussion done by RT. Pt is in no acute distress. PT using IS as instructed. Pt still has wet cough and able to suction out when cough whitish sputum.
[2023-03-27] MEDS: ALPRAZOLAM 0.25 MG TABLET PO PRN (15:24)
--- NOTE | 2023-03-27 16:00 | NUR ---
Xanax effective pt more comfortable breathing. Given @ 1530 2ndary to pt c/o anxiety with nose flaring and asking for something to calm him down. .
--- NOTE | 2023-03-27 18:34 | NUR ---
Pt is in no acute distress. Midline inserted on left ac from Midline RN. Pt's pain on right side 2/10 and tolerable. Pt 's pain managed with pain Meds that was ordered. Call light is within reach.
[2023-03-27] MEDS: ATORVASTATIN 40 MG TABLET PO SCH (21:13)
[2023-03-27] MEDS: TRAZODONE 50 MG TABLET PO SCH (21:13)
[2023-03-28] VITALS (13 sets, daily range): BP systolic 117–150; BP diastolic 57–80; TEMP 97–98.7; O2SAT 90–99
[2023-03-28] MEDS: PANTOPRAZOLE SODIUM 40 MG TABLET.DR PO SCH (05:56)
[2023-03-28] MEDS: ALPRAZOLAM 0.25 MG TABLET PO PRN ×2 (06:10→13:34)
[2023-03-28] MEDS: BLOOD SUGAR DIAGNOSTIC 1 EACH STRIP VI SCH ×4 (06:12→21:02)
--- NOTE | 2023-03-28 06:14 | NUR ---
patient rested well in between care; anxious this AM; xanax given PO; safety maintained; pain management with morphine; needs attended; continue to monitor; continue plan of care.
[2023-03-28 06:37] LABS: MEAN CORPUSCULAR HEMOGLOBIN 30.3 uug (23.8-33.4); MEAN CORPUSCULAR VOLUME 91.5 fL (73.0-96.2); PLATELET COUNT (AUTO) 335 K/uL (152-348)
[2023-03-28 06:47] LABS: CHLORIDE 90 mmol/L (98-107); CREATININE 2.2 mg/dL (0.6-1.3); GLUCOSE 160 mg/dL (74-106); MAGNESIUM 2.8 mg/dL (1.8-2.4); PHOSPHOROUS 4.2 mg/dL (2.5-4.9); POTASSIUM 5.1 mmol/L (3.5-5.1)
[2023-03-28 06:57] LABS: CARBON DIOXIDE 41 mmol/L (21-32); UREA NITROGEN, BLOOD 113 mg/dL (7-18)
[2023-03-28] MEDS: ALBUTEROL SULFATE 2.5 MG/3 ML NEBU NEB SCH ×4 (07:39→20:14)
[2023-03-28] MEDS: IPRATROPIUM BROMIDE 0.5 MG/2.5 ML NEBU NEB SCH ×4 (07:39→20:14)
--- NOTE | 2023-03-28 08:00 | NUR ---
Noted pt using IS. PT able to use IS with proper technique and verbal cues. Pt at Edge of bed again for breakfast. PT on o2 @ 3lit via n/c. Call light is within reach. Aspiration precaution, Frequent turning q2hr WA, and frequent suctioning prn when pt attempts to cough up his phlegm ( thick white mucus) implemented. Call light is within reach.
[2023-03-28] MEDS: CLOPIDOGREL 75 MG TABLET PO SCH (08:48)
[2023-03-28] MEDS: predniSONE 20 MG TABLET PO SCH (08:49)
[2023-03-28] MEDS: NEPRO (VANILLA) 237 ML CAN PO SCH (08:49)
[2023-03-28] MEDS: DOCUSATE SODIUM 100 MG CAPSULE PO SCH ×2 (08:49→20:31)
[2023-03-28] MEDS: METOPROLOL SUCCINATE XL 50 MG TAB.SR.24H PO SCH (08:49)
[2023-03-28] MEDS: AMLODIPINE 5 MG TABLET PO SCH (08:49)
[2023-03-28] MEDS: INSULIN REGULAR, HUMAN 300 UNIT/3 ML VIAL SQ PRN ×4 (08:53→21:06)
[2023-03-28] MEDS: CEFTRIAXONE 1 G in IV DEXTROSE 5% 50 ML IV SCH (10:03)
--- NOTE | 2023-03-28 13:34 | NUR ---
Pt fixated on having staff next to him at all times. Pt anxious when his significant other is not next to him. Xanax given for anxiety as ordered. will monitor patient.
--- NOTE | 2023-03-28 15:00 | NUR ---
Pt tolerated physical therapy. Pt able to ambulate by pt's door way with 2 Physical therapy. Pt denies any c/o pain. Xanax effective. pt less anxious.
[2023-03-28] MEDS: MORPHINE SULFATE 4 MG/1 ML DISP.SYRIN IV PRN (20:26)
[2023-03-28] MEDS: TRAZODONE 50 MG TABLET PO SCH (20:30)
[2023-03-28] MEDS: ATORVASTATIN 40 MG TABLET PO SCH (20:31)
[2023-03-29] VITALS (13 sets, daily range): BP systolic 120–161; BP diastolic 40–64; TEMP 98–98.9; O2SAT 92–99
[2023-03-29] MEDS: ALPRAZOLAM 0.25 MG TABLET PO PRN ×2 (00:22→09:05)
[2023-03-29] MEDS: PANTOPRAZOLE SODIUM 40 MG TABLET.DR PO SCH (06:14)
[2023-03-29] MEDS: BLOOD SUGAR DIAGNOSTIC 1 EACH STRIP VI SCH ×4 (06:33→20:47)
--- NOTE | 2023-03-29 06:41 | NUR ---
Patient slept intermittently, no acute distress noted. Encouraged to use IS. With episode of agitation, xanax given. Needs assessed and attended to.
[2023-03-29 07:04] LABS: HEMATOCRIT 33.6 % (36.7-47.1); MEAN CORPUSCULAR VOLUME 91.5 fL (73.0-96.2); PLATELET COUNT (AUTO) 326 K/uL (152-348)
[2023-03-29] MEDS: ALBUTEROL SULFATE 2.5 MG/3 ML NEBU NEB SCH ×4 (07:51→19:51)
[2023-03-29] MEDS: IPRATROPIUM BROMIDE 0.5 MG/2.5 ML NEBU NEB SCH ×4 (07:52→19:51)
--- NOTE | 2023-03-29 08:00 | NUR ---
Pt refusing to have his routine HHN tx. Explained to pt purpose of the HHN tx to help him with his breathing. PT continue to refuse. PT on Edge of bed For breakfast. Pt denies any c/o pain. Call light is within reach. Pt on 3 lit o2 N/c.
[2023-03-29 08:19] LABS: CARBON DIOXIDE 41 mmol/L (21-32); CHLORIDE 90 mmol/L (98-107); CREATININE 1.4 mg/dL (0.6-1.3); GLUCOSE 131 mg/dL (74-106); MAGNESIUM 2.5 mg/dL (1.8-2.4); POTASSIUM 4.2 mmol/L (3.5-5.1); UREA NITROGEN, BLOOD 84 mg/dL (7-18)
[2023-03-29] MEDS: CLOPIDOGREL 75 MG TABLET PO SCH (08:34)
[2023-03-29] MEDS: METOPROLOL SUCCINATE XL 50 MG TAB.SR.24H PO SCH (08:34)
[2023-03-29] MEDS: DOCUSATE SODIUM 100 MG CAPSULE PO SCH ×2 (08:34→20:39)
[2023-03-29] MEDS: predniSONE 20 MG TABLET PO SCH (08:34)
[2023-03-29] MEDS: AMLODIPINE 5 MG TABLET PO SCH (08:34)
[2023-03-29] MEDS: NEPRO (VANILLA) 237 ML CAN PO SCH ×3 (08:35→17:00)
[2023-03-29] MEDS: INSULIN REGULAR, HUMAN 300 UNIT/3 ML VIAL SQ PRN ×3 (12:34→20:50)
[2023-03-29] MEDS: ATORVASTATIN 40 MG TABLET PO SCH (20:39)
[2023-03-29] MEDS: TRAZODONE 50 MG TABLET PO SCH (20:39)
[2023-03-29] MEDS: INSULIN GLARGINE,HUM 300 UNITS/3 ML CARTRIDGE SQ SCH (20:49)
[2023-03-29] MEDS: MORPHINE SULFATE 4 MG/1 ML DISP.SYRIN IV PRN (21:20)
[2023-03-30] VITALS (13 sets, daily range): BP systolic 116–147; BP diastolic 47–86; TEMP 97–98.9; O2SAT 92–99
[2023-03-30] MEDS: PANTOPRAZOLE SODIUM 40 MG TABLET.DR PO SCH (06:26)
[2023-03-30] MEDS: BLOOD SUGAR DIAGNOSTIC 1 EACH STRIP VI SCH ×4 (06:40→20:57)
[2023-03-30 07:19] LABS: HEMATOCRIT 33.9 % (36.7-47.1); MEAN CORPUSCULAR HEMOGLOBIN 30.4 uug (23.8-33.4); MEAN CORPUSCULAR VOLUME 90.9 fL (73.0-96.2); PLATELET COUNT (AUTO) 336 K/uL (152-348)
[2023-03-30 07:50] LABS: ALANINE AMINOTRANSFERASE 134 U/L (16-63); ALKALINE PHOSPHATASE 86 U/L (50-136); ASPARTATE AMINOTRANSFERASE 50 U/L (15-37); BILIRUBIN,TOTAL 0.7 mg/dL (0.2-1.0); CARBON DIOXIDE 38 mmol/L (21-32); CHLORIDE 93 mmol/L (98-107); GLUCOSE 117 mg/dL (74-106); PHOSPHOROUS 3.1 mg/dL (2.5-4.9); POTASSIUM 4.4 mmol/L (3.5-5.1); TOTAL PROTEIN, SERUM 6.2 g/dL (6.4-8.2); UREA NITROGEN, BLOOD 53 mg/dL (7-18)
[2023-03-30] MEDS: ALBUTEROL SULFATE 2.5 MG/3 ML NEBU NEB SCH ×4 (07:53→20:08)
[2023-03-30] MEDS: IPRATROPIUM BROMIDE 0.5 MG/2.5 ML NEBU NEB SCH ×4 (07:53→20:07)
[2023-03-30] MEDS: DOCUSATE SODIUM 100 MG CAPSULE PO SCH ×2 (08:18→20:22)
[2023-03-30] MEDS: CLOPIDOGREL 75 MG TABLET PO SCH (08:18)
[2023-03-30] MEDS: AMLODIPINE 5 MG TABLET PO SCH (08:18)
[2023-03-30] MEDS: predniSONE 20 MG TABLET PO SCH (08:19)
[2023-03-30] MEDS: METOPROLOL SUCCINATE XL 50 MG TAB.SR.24H PO SCH (08:19)
[2023-03-30] MEDS: NEPRO (VANILLA) 237 ML CAN PO SCH ×2 (08:21→17:25)
[2023-03-30] MEDS ORDERED: BISACODYL 10 MG SUPP.RECT RC PRN (11:15)
[2023-03-30] MEDS: INSULIN REGULAR, HUMAN 300 UNIT/3 ML VIAL SQ PRN ×3 (11:58→21:00)
--- NOTE | 2023-03-30 13:51 | NUR ---
Pt. c/o constipation for days. MOM and Dulcolax suppository given. Then, pt. had a large BM. will keep monitoring the patient.
--- NOTE | 2023-03-30 16:05 | NUR ---
Pt. has been stable during the shift. No change in condition noted. Ambulated with PT and walker. Able to make the need known. caregiver noted at his bedside. Call light within reach. No adverse reaction of medications noted. Bed in low position. No c/o dizziness or headache noted. Will keep monitoring the patient.
[2023-03-30] MEDS: ATORVASTATIN 40 MG TABLET PO SCH (20:22)
[2023-03-30] MEDS: TRAZODONE 50 MG TABLET PO SCH (20:22)
[2023-03-30] MEDS: INSULIN GLARGINE,HUM 300 UNITS/3 ML CARTRIDGE SQ SCH (20:57)
[2023-03-30] MEDS: ALPRAZOLAM 0.25 MG TABLET PO PRN (23:49)
[2023-03-30] MEDS: ACETAMINOPHEN 325 MG TABLET PO PRN (23:49)
--- NOTE | 2023-03-30 23:50 | NUR ---
Patient complain of anxiety, and gen body pain, given xanax and tylenol with effective results, patient relax and fall asleep, no sob no chest pain, cont to monitor.
--- NOTE | 2023-03-31 | NUR ---
Received patient from neha Mcintyre RN, patient awake, forgetful, noted with anxiety, unable to sleep, kept pressing the call light. kept patient clean and dry, attend his needs as much as possible, ate snack with the , will cont to monitor.
[2023-03-31 04:00] VITALS: BP 143/70; TEMP 97.2; O2SAT 98
--- NOTE | 2023-03-31 04:31 | NUR ---
Patient asleep but arousable, no sob no chest pain, oxygen sat wnl, on oxygen 3 liter per minute sat 97%. appear relax and free of pain. cont to monitor.
[2023-03-31] MEDS: BLOOD SUGAR DIAGNOSTIC 1 EACH STRIP VI SCH ×2 (06:14→12:22)
[2023-03-31] MEDS: PANTOPRAZOLE SODIUM 40 MG TABLET.DR PO SCH (06:14)
[2023-03-31 07:31] LABS: HEMATOCRIT 33.7 % (36.7-47.1); MEAN CORPUSCULAR HEMOGLOBIN 30.2 uug (23.8-33.4); PLATELET COUNT (AUTO) 324 K/uL (152-348)
[2023-03-31 07:38] VITALS: O2SAT 96
[2023-03-31] MEDS: IPRATROPIUM BROMIDE 0.5 MG/2.5 ML NEBU NEB SCH ×3 (07:38→15:43)
[2023-03-31] MEDS: ALBUTEROL SULFATE 2.5 MG/3 ML NEBU NEB SCH ×3 (07:38→15:43)
[2023-03-31 07:43] LABS: CARBON DIOXIDE 39 mmol/L (21-32); CHLORIDE 95 mmol/L (98-107); CREATININE 0.9 mg/dL (0.6-1.3); GLUCOSE 95 mg/dL (74-106); MAGNESIUM 1.8 mg/dL (1.8-2.4); PHOSPHOROUS 3.9 mg/dL (2.5-4.9); POTASSIUM 4.4 mmol/L (3.5-5.1); UREA NITROGEN, BLOOD 39 mg/dL (7-18)
[2023-03-31 07:48] VITALS: O2SAT 96; O2SAT 98
[2023-03-31] MEDS: predniSONE 20 MG TABLET PO SCH (08:15)
[2023-03-31] MEDS: AMLODIPINE 5 MG TABLET PO SCH (08:16)
[2023-03-31] MEDS: METOPROLOL SUCCINATE XL 50 MG TAB.SR.24H PO SCH (08:16)
[2023-03-31] MEDS: CLOPIDOGREL 75 MG TABLET PO SCH (08:16)
[2023-03-31] MEDS: DOCUSATE SODIUM 100 MG CAPSULE PO SCH (08:16)
[2023-03-31] MEDS: NEPRO (VANILLA) 237 ML CAN PO SCH (08:17)
--- NOTE | 2023-03-31 10:16 | NUR ---
Per Dr. Man Vincent cath removed and pt. was able to tolerate it. Will keep monitoring the patient.
[2023-03-31 11:46] VITALS: BP 148/59; TEMP 98.5; O2SAT 100
[2023-03-31 12:08] VITALS: O2SAT 97
[2023-03-31] MEDS: INSULIN REGULAR, HUMAN 300 UNIT/3 ML VIAL SQ PRN (12:24)
[2023-03-31] MEDS ORDERED: FURO-152 PO (13:38)
[2023-03-31] MEDS ORDERED: METH4TAB3 PO (13:38)
[2023-03-31] MEDS ORDERED: Insulin Glargine,Hum SQ (13:38)
[2023-03-31] MEDS ORDERED: TRAZ-257 PO (13:38)
[2023-03-31] MEDS ORDERED: Nepro PO (13:38)
[2023-03-31] MEDS ORDERED: AMLO-212 PO (13:38)
[2023-03-31] MEDS ORDERED: TAMSULOSIN HCL 0.4 MG CAP.SR.24H PO ONE (13:45)
--- NOTE | 2023-03-31 16:00 | NUR ---
Pt. discharged home. Noted pt. to be stable upon the discharge. All personal belonging returned to the patient. Body check done and pictures included in pt. the chart. All necessary document signed and a copy given to the patient. Pt. was wheeled down by the LIQUOR CLERK and was picked up by the caregiver and .
[2023-04-01] MEDS ORDERED: predniSONE 20 MG TABLET PO SCH (08:00)
== END 2023-03-31 16:15 | disposition home or self-care (01) | DRG 871 ==
LOC: ER 22:09 → TRANSITION 03-20 01:43 → TELE-TD3 03-24 17:38 → TELE3 03-25 10:00 → MEDSURG3 03-29 10:29
PROVIDERS: ADMIT Nurse Practitioner Acute Care; ATTEND Internal Medicine
PROC: 05H533Z Insertion of Infusion Device into Right Subclavian Vein, Percutaneous Approach (ICD-10-PCS; principal; 2023-03-20)
PROC: B546ZZA Ultrasonography of Right Subclavian Vein, Guidance (ICD-10-PCS; 2023-03-20)
PROC: 5A09357 Assistance with Respiratory Ventilation, Less than 24 Consecutive Hours, Continuous Positive Airway Pressure (ICD-10-PCS; 2023-03-21)
PROC: 06HM33Z Insertion of Infusion Device into Right Femoral Vein, Percutaneous Approach (ICD-10-PCS; 2023-03-23)
PROC: B54BZZA Ultrasonography of Right Lower Extremity Veins, Guidance (ICD-10-PCS; 2023-03-23)
PROC: 05H633Z Insertion of Infusion Device into Left Subclavian Vein, Percutaneous Approach (ICD-10-PCS; 2023-03-27)
PROC: B547ZZA Ultrasonography of Left Subclavian Vein, Guidance (ICD-10-PCS; 2023-03-27)
DX: A41.9 Sepsis, unspecified organism (principal); G92.8 Other toxic encephalopathy; I21.A1 Myocardial infarction type 2; J69.0 Pneumonitis due to inhalation of food and vomit; I50.33 Acute on chronic diastolic (congestive) heart failure; J96.22 Acute and chronic respiratory failure with hypercapnia; J96.21 Acute and chronic respiratory failure with hypoxia; N17.0 Acute kidney failure with tubular necrosis; I16.1 Hypertensive emergency; D68.69 Other thrombophilia; E87.1 Hypo-osmolality and hyponatremia; J90 Pleural effusion, not elsewhere classified; I11.0 Hypertensive heart disease with heart failure; D64.9 Anemia, unspecified; E11.51 Type 2 diabetes mellitus with diabetic peripheral angiopathy without gangrene; E78.5 Hyperlipidemia, unspecified; E87.5 Hyperkalemia; F39 Unspecified mood [affective] disorder; E87.8 Other disorders of electrolyte and fluid balance, not elsewhere classified; I25.10 Atherosclerotic heart disease of native coronary artery without angina pectoris; I25.2 Old myocardial infarction; Z79.01 Long term (current) use of anticoagulants; Z86.718 Personal history of other venous thrombosis and embolism; Z87.891 Personal history of nicotine dependence; Z99.81 Dependence on supplemental oxygen; I27.20 Pulmonary hypertension, unspecified; J44.9 Chronic obstructive pulmonary disease, unspecified; Z98.61 Coronary angioplasty status; M19.90 Unspecified osteoarthritis, unspecified site; Z74.09 Other reduced mobility; G47.00 Insomnia, unspecified; E11.42 Type 2 diabetes mellitus with diabetic polyneuropathy; Z79.84 Long term (current) use of oral hypoglycemic drugs; E86.1 Hypovolemia; K29.70 Gastritis, unspecified, without bleeding; S00.532A Contusion of oral cavity, initial encounter; X58.XXXA Exposure to other specified factors, initial encounter; Y93.9 Activity, unspecified; Y92.009 Unspecified place in unspecified non-institutional (private) residence as the place of occurrence of the external cause; Z79.4 Long term (current) use of insulin; E66.9 Obesity, unspecified; Z68.29 Body mass index [BMI] 29.0-29.9, adult; Z20.822 Contact with and (suspected) exposure to COVID-19; Z96.641 Presence of right artificial hip joint
CPT/HCPCS: 36415; 36600; 70030-TC; 71045; 71275; 74018; 76770; 82533; 82803; 83550; 83605; 83735; 83930; 83935; 84100; 84300; 84443; 84484; 84550; 85025; 85730; 86140; 86706; 87040; 87340; 93005; 93307; 93880; 94640; 94660; 94760; A4663; C9113; G0378; J0360; J0456; J0696; J1650; J1815; J1940; J1956; J2270; J2405; J2920; J2930; J3475; J3490; J3590; J7050; J7512; Q9967